=== PATIENT | male | born 1965 | race Caucasian/White ===

== ENCOUNTER → 2016-11-12 | Outpatient (CLI) | payer BC ==
[~2016-11-12] MED LIST: ALLO300T2 PO; HYDR25TA4 PO; LISI40TA PO; MULT-506 PO; SIMV40TA4 PO; [UNRECOGNIZED DRUG - CODE] PO
[2016-11-12 12:22] LABS: BASO % 0.3 %; BASO ABS # 0.02 K/uL (0-0.2); COMPLETE YES; EOS % 3.4 %; HEMATOCRIT 42.1 % (42-52); IG% 0.1 %; LYMPH % 23.7 %; LYMPH ABS # 1.76 K/uL (1.2-3.4); MEAN CELL VOLUME 89.6 fL (80-100); MEAN CORPUSCULAR HEMOGLOBIN 29.1 pg (25-34); MEAN CORPUSCULAR HGB CONC 32.5 g/dl (32-36); MONO % 6.5 %; PLATELET COUNT 180 K/uL (130-400); WHITE BLOOD COUNT 7.42 K/uL (4.8-10.8)
[2016-11-12 12:40] LABS: ALB/GLOB RATIO 0.9 (0.9-2); ALT/SGPT 34 U/L (12-78); AST/SGOT 20 U/L (15-37); BLOOD UREA NITROGEN 13 mg/dl (7-18); BUN/CREATININE RATIO 13.9 (10-20); CALCIUM 8.9 mg/dl (8.5-10.1); CARBON DIOXIDE 28 mmol/L (21-32); CHLORIDE 109 mmol/L (98-107); CREATININE 0.96 mg/dl (0.60-1.40); GLUCOSE 88 mg/dl (70-99); HDL CHOLESTEROL 31 mg/dl; POTASSIUM 3.6 mmol/L (3.5-5.1); SODIUM 143 mmol/L (136-145); TRIGLYCERIDES 232 mg/dl (0-150); VERY LOW DENSITY LIPOPROT CALC 46 mg/dl
[2016-11-12 12:48] LABS: ALKALINE PHOSPHATASE 65 U/L (45-117); CHOLESTEROL 122 mg/dl (0-200); CHOLESTEROL/HDL RATIO 3.9; LDL CHOLESTEROL CALCULATED 45 mg/dl; PROSTATE SPECIFIC ANTIGEN 0.862 ng/ml (0.000-4.000); URIC ACID 6.7 mg/dl (2.6-7.2)
[2016-11-12 13:32] LABS: LYME DISEASE AB IGG NEG (NEG); LYME DISEASE AB IGM NEG (NEG)
[2016-11-13 18:20] LABS: ALBUMIN 3.6 G/DL (3.8-4.8); GAMMA GLOBULIN 0.9 G/DL (0.8-1.7); TOTAL PROTEIN 6.6 G/DL (6.2-8.3)
== END | disposition home or self-care (01) ==
LOC: C.LABBFT 10:41
PROVIDERS: ATTEND Internal Medicine
DX: R80.9 Proteinuria, unspecified (principal); E78.00 Pure hypercholesterolemia, unspecified; M25.50 Pain in unspecified joint; M10.9 Gout, unspecified

== ENCOUNTER → 2016-11-13 | Outpatient (CLI) | payer BC ==
[2016-11-13 17:31] LABS: URINE APPEARANCE CLEAR (CLEAR); URINE BILIRUBIN NEG (NEG); URINE COLOR YELLOW; URINE NITRITE NEG (NEG); URINE PH 5.5 (4.5-7.5); URINE SPECIFIC GRAVITY 1.025 (1.000-1.030); UROBILINOGEN NEG (NEG); ZZUR CULT IF INDIC CLEAN CATCH NO
[2016-11-13 17:42] LABS: MANUAL MICROSCOPIC REQUIRED? NO; REVIEW REQ? YES
[2016-11-18 09:01] LABS: ALBUMIN % 70.54 %; ALPHA-2-GLOBULIN % 5.16 %; BETA GLOBULIN % 11.78 %; CREATININE UR 177 MG/DL (20-370); GAMMA GLOBULIN % 7.08 %
== END | disposition home or self-care (01) ==
LOC: C.LABBFT 10:17
PROVIDERS: ATTEND Internal Medicine
DX: R80.9 Proteinuria, unspecified (principal)

== ENCOUNTER 2017-01-20 15:31 | Emergency (ER) | payer BC ==
[~2017-01-20] VITALS: Ht 162.6 cm; Wt 141.0 kg
[2017-01-20 15:33] VITALS: TEMP 36.7; Ht 162.6 cm; Wt 141.0 kg
--- NOTE | 2017-01-20 16:09 | DIAGNOSTIC IMAGING REPORT ---
L ANKLE MIN 3 VIEWS ROUTINE CLINICAL HISTORY: Left ankle pain. COMPARISON: None FINDINGS: Moderate ankle soft tissue swelling is noted. A lucency through the posterior aspect of the distal left tibia suggests a minimally displaced fracture. Note is made of cortical irregularity distal left tibia along the distal tibiofibular syndesmosis. This is age indeterminate. Talar dome is intact. There is no ankle mortise widening. IMPRESSION: 1. Minimally displaced fracture of the posterior aspect of the distal left tibia which is likely acute. This could be correlated with traumatic history. 2. Lucency with cortical irregularity of the distal left tibia along the distal tibiofibular syndesmosis which is age indeterminate but may reflect an acute fracture. 3. Moderate ankle soft tissue swelling. No ankle mortise widening. Electronically signed by: Perry Enriquez M.D. 01/20/2017 4:08 PM Dictated Date/Time: 01/20/2017 4:04 PM
--- NOTE | 2017-01-20 16:46 | EMERGENCY ROOM VISIT NOTE ---
ED Visit Note First contact with patient: 16:11 CHIEF COMPLAINT: Ankle pain HISTORY OF PRESENT ILLNESS: This 51-year-old male patient presents to the emergency department, 2 hours after sustaining an injury to the left ankle and foot with a plantar flexion motion when he fell down the stairs. The patient states he was walking down the cellar steps, when he fell down approximately 3- 4 steps. He states he landed on his knees with his feet plantar flexed underneath him. The patient states since the injury, he has not been able to ambulate. The patient complains of pain along the front and medial aspects of the ankle. The patient denies pain of the foot. The patient rates the pain as minimal and 5/10. The patient is not able to bear weight on the foot. Constant pain, worse with movement, weight bearing, and the dependent position. The patient does complain of bilateral knee pain from bruising and contusions when he fell and he is able to move their toes. No numbness or weakness of the foot, no laceration. The patient has not had a previous fracture to this ankle. The patient has taken 600 mg ibuprofen for the pain, which she did state helped significantly. The patient does complain of discomfort in his left third and fourth fingers. He states he believes he jammed them back when he fell. The patient does decline x-rays of the fingers. The patient denies any other injury. REVIEW OF SYSTEMS: A 6 system review of systems was completed with positives and pertinent negatives listed in the HPI. ALLERGIES: None MEDICATIONS: Please see list. I did personally review the patient's medications with him at bedside. PMH: Hypertension, hyperlipidemia SOCIAL HISTORY: Patient lives locally with family. He admits to chewing tobacco. He denies drug, alcohol, or other tobacco use. PHYSICAL EXAM: Vital Signs: Reviewed Nurse's notes, vital signs stable. GENERAL : This is a 51-year-old male presented in a wheelchair, no acute distress, but appears in pain, well-developed, well-nourished. MENTAL STATUS: Alert, oriented to person place and time, and cooperative. MUSCULOSKELETAL: The left ankle is swollen and tender over the lateral malleolus, anterior aspect of the ankle, and posterior aspect of the ankle, but the skin is intact and there is no ligamentous instability. There is no fifth metatarsal tenderness. There is no tenderness over the rest of the foot. There is no calf or tibia/fibular tenderness. There is no visual deformity. The foot and toes are warm and well- perfused. Dorsalis pedis pulse 2+. Sensation to pain and light touch is intact. Capillary refill less than 2 seconds. RADIOLOGY: X-Ray Left Ankle: L ANKLE MIN 3 VIEWS ROUTINE CLINICAL HISTORY: Left ankle pain. COMPARISON: None FINDINGS: Moderate ankle soft tissue swelling is noted. A lucency through the posterior aspect of the distal left tibia suggests a minimally displaced fracture. Note is made of cortical irregularity distal left tibia along the distal tibiofibular syndesmosis. This is age indeterminate. Talar dome is intact. There is no ankle mortise widening. IMPRESSION: 1. Minimally displaced fracture of the posterior aspect of the distal left tibia which is likely acute. This could be correlated with traumatic history. 2. Lucency with cortical irregularity of the distal left tibia along the distal tibiofibular syndesmosis which is age indeterminate but may reflect an acute fracture. 3. Moderate ankle soft tissue swelling. No ankle mortise widening. Electronically signed by: Perry Enriquez M.D. 01/20/2017 4:08 PM Dictated Date/Time: 01/20/2017 4:04 PM EMERGENCY DEPARTMENT COURSE: I examined the patient. I did offer pain medication, but he declines. X-rays of the left ankle, which were ordered through critical pathways were reviewed by myself and read by radiology and reveal a distal tibia fracture. A posterior leg Ortho-Glass splint was applied to the ankle under my direction and the position was satisfactory. Neurovascular status was rechecked and intact. The patient was instructed on the use of crutches. The patient was discharged home in good condition. I attest that I have personally reviewed the patient's current medication list. Blood Pressure Screening: Patient was found to have a slightly elevated blood pressure due to circumstances. I do not believe that the patient requires hypertension monitoring. DIFFERENTIAL DIAGNOSIS: Fracture, contusion, sprain, strain, and others DIAGNOSIS: Distal Tibia fracture DISCHARGE INSTRUCTIONS: ORTHOPEDIC INSTRUCTIONS: You were seen in the ED today for a posterior, slightly displaced, distal tibia fracture. Ibuprofen(Motrin, Advil) may be used for fever or pain. Use 600mg every six hours as needed. Take with food. Avoid using more than 2400mg in a 24 hour period. Do not use 2400mg per day for more than three consecutive days without physician direction. Prolonged inappropriate use can lead to stomach upset or ulcers. (AND/OR) Acetaminophen(Tylenol) may be used for fever or pain. Use 1000mg every six hours as needed. Avoid using more than 3000mg in a 24 hour period. Ice compresses for 20 minutes at a time four times daily for 2-3 days. Use the crutches as instructed. Rest and elevate your injury. Do not get the splint wet. If your splint feels excessively tight, you have worsening pain, develop numbness or tingling, or your digits appear blue, loosen the jeffery wrap. Then reapply the jeffery wrap gently without removing the splint. If your symptoms are not quickly relieved return to the ER for re- evaluation. Return to the ER immediately for any numbness, tingling, severe pain, extreme swelling in the extremity or as needed. Call [facility], [phone], today or tomorrow to arrange follow up for your injury, likely within 3-5 days. Follow-up with your primary care physician in 2 to 3 days for a recheck of your current condition. Current/Historical Medications Scheduled Allopurinol (Zyloprim), 300 MG PO DAILY Diltiazem Hcl Extended Release (Tiazac 180 Mg), 180 MG PO DAILY Hydrochlorothiazide (Hctz), 25 MG PO DAILY Lisinopril (Zestril), 40 MG PO DAILY Multivitamin (Multivitamin), 1 TAB PO DAILY Simvastatin (Zocor), 40 MG PO QPM Allergies Coded Allergies: No Known Allergies (Verified , 01/20/17) Vital Signs Date Time Temp Pulse Resp B/P (MAP) Pulse Ox O2 Delivery O2 Flow Rate FiO2 01/20/17 17:18 84 16 186/107 98 01/20/17 15:33 36.7 97 20 160/88 96 Room Air Departure Information Impression Primary Impression: Fracture of distal end of left tibia Dispostion Home / Self-Care Condition GOOD Referrals Malik Li M.D. (PCP) Tejinder Matta, DO Patient Instructions ED Fx Ankle General, [facility] Additional Instructions ORTHOPEDIC INSTRUCTIONS: You were seen in the ED today for a posterior, slightly displaced, distal tibia fracture. Ibuprofen(Motrin, Advil) may be used for fever or pain. Use 600mg every six hours as needed. Take with food. Avoid using more than 2400mg in a 24 hour period. Do not use 2400mg per day for more than three consecutive days without physician direction. Prolonged inappropriate use can lead to stomach upset or ulcers. (AND/OR) Acetaminophen(Tylenol) may be used for fever or pain. Use 1000mg every six hours as needed. Avoid using more than 3000mg in a 24 hour period. Ice compresses for 20 minutes at a time four times daily for 2-3 days. Use the crutches as instructed. Rest and elevate your injury. Do not get the splint wet. If your splint feels excessively tight, you have worsening pain, develop numbness or tingling, or your digits appear blue, loosen the jeffery wrap. Then reapply the jeffery wrap gently without removing the splint. If your symptoms are not quickly relieved return to the ER for re- evaluation. Return to the ER immediately for any numbness, tingling, severe pain, extreme swelling in the extremity or as needed. Call [facility], [phone], today or tomorrow to arrange follow up for your injury, likely within 3-5 days. Follow-up with your primary care physician in 2 to 3 days for a recheck of your current condition. Work Instructions Return To Work: 3 days Problem Qualifiers Primary Impression: Fracture of distal end of left tibia Encounter type: initial encounter Fracture type: closed Fracture morphology : unspecified fracture morphology Qualified Codes: S82.302A - Unspecified fracture of lower end of left tibia, initial encounter for closed fracture
[2017-01-20 17:18] VITALS: BP 186/107; PULSE 84; O2SAT 98
== END 2017-01-20 17:18 | disposition home or self-care (01) ==
LOC: C.EDB 15:32 → C.EDD 17:18
DX: S82.302A Unspecified fracture of lower end of left tibia, initial encounter for closed fracture (principal); W10.9XXA Fall (on) (from) unspecified stairs and steps, initial encounter; Y92.009 Unspecified place in unspecified non-institutional (private) residence as the place of occurrence of the external cause; M25.561 Pain in right knee; M25.562 Pain in left knee; M79.645 Pain in left finger(s); I10 Essential (primary) hypertension; E78.5 Hyperlipidemia, unspecified; F17.220 Nicotine dependence, chewing tobacco, uncomplicated

== ENCOUNTER → 2017-01-21 | Outpatient (CLI) | payer BC | END | disposition home or self-care (01) | LOC: C.RDSM 12:11 | PROVIDERS: ATTEND Orthopaedic Surgery | DX: S89.82XA Other specified injuries of left lower leg, initial encounter (principal); X58.XXXA Exposure to other specified factors, initial encounter ==

== ENCOUNTER → 2017-01-23 | Outpatient (CLI) | payer BC ==
--- NOTE | 2017-01-23 14:39 | DIAGNOSTIC IMAGING REPORT ---
L VENOUS DOPP LOWER EXT UNILAT CLINICAL HISTORY: 51 years-old Male presenting with LT LEG SWELLING,R/O DVT STAT. TECHNIQUE: Real-time grayscale and color and spectral Doppler ultrasound imaging of the veins of the left lower extremity was performed. Compression and augmentation were also utilized. COMPARISON: None. FINDINGS: Left: Common femoral vein: Patent. Femoral vein: Patent. Greater saphenous vein: Patent. Popliteal vein: Patent. Calf veins: Patent. Other: None. IMPRESSION: No evidence of deep venous thrombosis. Electronically signed by: Marcos Chapin M.D. 01/23/2017 2:37 PM Dictated Date/Time: 01/23/2017 2:36 PM
== END | disposition home or self-care (01) ==
LOC: C.ULTR 13:58
PROVIDERS: ATTEND Orthopaedic Surgery
DX: R60.0 Localized edema (principal)

== ENCOUNTER → 2017-02-04 | Outpatient (CLI) | payer BC ==
[~2017-02-04] VITALS: Ht 167.6 cm; Wt 142.4 kg
[2017-02-04 14:27] VITALS: BP 148/100; PULSE 105; Ht 167.6 cm; Wt 142.4 kg
== END | disposition home or self-care (01) ==
LOC: C.NEUR 13:50
PROVIDERS: ATTEND Internal Medicine Pulmonary Disease
DX: G47.33 Obstructive sleep apnea (adult) (pediatric) (principal); E66.01 Morbid (severe) obesity due to excess calories

== ENCOUNTER → 2017-03-07 | Outpatient (CLI) | payer BC | END | disposition home or self-care (01) | LOC: C.RDSM 10:28 | PROVIDERS: ATTEND Orthopaedic Surgery | DX: M25.572 Pain in left ankle and joints of left foot (principal) ==

== ENCOUNTER → 2017-04-18 | Outpatient (CLI) | payer BC ==
[~2017-04-18] MED LIST changes: +DILT-113 PO
== END | disposition home or self-care (01) ==
LOC: C.LABBFT 10:20
PROVIDERS: ATTEND Internal Medicine
DX: R80.9 Proteinuria, unspecified (principal)

== ENCOUNTER → 2017-06-09 | Outpatient (CLI) | payer BC ==
[~2017-06-09] MED LIST changes: -DILT-113 PO
--- NOTE | 2017-06-09 10:40 | DIAGNOSTIC IMAGING REPORT ---
ULTRASOUND KIDNEYS AND BLADDER CLINICAL HISTORY: Chronic kidney disease. COMPARISON STUDY: Abdominal radiographs dated 08/14/2011. TECHNIQUE: Real-time, grayscale, and color flow sonography of the kidneys and bladder is performed. Images are reviewed in the transverse and longitudinal planes. FINDINGS: Kidneys: The kidneys are normal in size and echotexture. The right kidney measures 12.2 x 5.5 x 5.3 cm and the left kidney measures 12.9 x 6.2 x 6.1 cm. There is no hydronephrosis. No shadowing renal calculi are identified. There is no sonographic evidence of contour deforming renal mass lesion. No perinephric fluid is identified. Bladder: The bladder is normal in appearance. Bilateral ureteral jets were seen. Minimal intraluminal debris is noted. IMPRESSION: 1. The kidneys are normal in size and without hydronephrosis. 2. There is minimal intraluminal debris suggested in the bladder. Correlation with urinalysis will be required. Electronically signed by: Juan Antonio Torres M.D. 06/09/2017 10:39 AM Dictated Date/Time: 06/09/2017 10:37 AM
== END | disposition home or self-care (01) ==
LOC: C.ULTR 10:12
PROVIDERS: ATTEND Internal Medicine Nephrology
DX: I12.9 Hypertensive chronic kidney disease with stage 1 through stage 4 chronic kidney disease, or unspecified chronic kidney disease (principal); N18.1 Chronic kidney disease, stage 1; E66.9 Obesity, unspecified; G47.33 Obstructive sleep apnea (adult) (pediatric); R80.9 Proteinuria, unspecified; R93.41 Abnormal radiologic findings on diagnostic imaging of renal pelvis, ureter, or bladder

== ENCOUNTER → 2017-06-23 | Outpatient (CLI) | payer BC ==
[~2017-06-23] MED LIST changes: +DILT-113 PO
[2017-06-23 12:41] LABS: HEMATOCRIT 44.7 % (42-52); HEMOGLOBIN 14.7 g/dL (14.0-18.0); MEAN CELL VOLUME 89.9 fL (80-100); MEAN CORPUSCULAR HEMOGLOBIN 29.6 pg (25-34); MEAN CORPUSCULAR HGB CONC 32.9 g/dl (32-36); MEAN PLATELET VOLUME 10.9 fL (7.4-10.4); PLATELET COUNT 180 K/uL (130-400); RED CELL DISTRIBUTION WIDTH SD 48.6 fL (36.4-46.3); WHITE BLOOD COUNT 8.56 K/uL (4.8-10.8)
[2017-06-23 14:39] LABS: ALBUMIN 3.4 gm/dl (3.4-5.0); ALT/SGPT 29 U/L (12-78); BLOOD UREA NITROGEN 16 mg/dl (7-18); CALCIUM 9.4 mg/dl (8.5-10.1); CARBON DIOXIDE 30 mmol/L (21-32); CREATININE 1.14 mg/dl (0.60-1.40); GLUCOSE 99 mg/dl (70-99); POTASSIUM 3.9 mmol/L (3.5-5.1); SODIUM 140 mmol/L (136-145)
[2017-06-23 14:42] LABS: ALKALINE PHOSPHATASE 62 U/L (45-117); AST/SGOT 17 U/L (15-37); TOTAL PROTEIN 7.5 gm/dl (6.4-8.2)
== END | disposition home or self-care (01) ==
LOC: C.LABBFT 10:32
PROVIDERS: ATTEND Internal Medicine Nephrology
DX: I10 Essential (primary) hypertension (principal); R80.9 Proteinuria, unspecified; G47.33 Obstructive sleep apnea (adult) (pediatric); E66.9 Obesity, unspecified; N18.1 Chronic kidney disease, stage 1

== ENCOUNTER → 2017-07-10 | Day surgery (SDC) | payer BC ==
[2017-06-26 09:50] VITALS: Ht 162.6 cm; Wt 143.2 kg
[~2017-07-10] VITALS: Ht 162.6 cm; Wt 143.2 kg
[~2017-07-10] MED LIST changes: +KETAMINE HCL INJ 50 MG/ML 10 ML VIAL ONE; +LIDOCAINE HCL 2% 2 ML VIAL (20MG/ML) ONE; +MIDAZOLAM HCL 1 MG/ML 2ML VIAL ONE; +ONDANSETRON INJ 2 MG/ML 2 ML VIAL ONE; +PROPOFOL IV EMULSION 10 MG/ML 20 ML VIAL IV ONE; +SODIUM CHLORIDE 0.9% 500ML 500 ML IV ONE; -[UNRECOGNIZED DRUG - CODE] PO
--- NOTE | 2017-07-10 13:07 | Endo History and Physical ---
History & Physical Date of Service: Jul 10, 2017. Chief Complaint: HISTORY OF POLYPS Referring Physician: DR GILLILAND History of Present Illness 51 yo CM who presents for colonoscopy secondary to history of colon polyps. Past Surgical History Hx Cardiac Surgery: No Hx Internal Defibrillator: No Hx Pacemaker: No Hx Abdominal Surgery: No Hx of Implantable Prosthesis: No Hx Post-Op Nausea and Vomiting: No Hx Cancer Surgery: No Hx Thoracic Surgery: No Hx Orthopedic: No Hx Urinary Tract Surgery: No Family History Colon CA, Polyp Social History Smoking Status: Never Smoker Hx Substance Use: No Hx Alcohol Use: No Allergies Coded Allergies: No Known Allergies (Verified , 07/10/17) Current Medications Reported Home Medications Medications Dose Route/Sig Max Daily Dose Days Date Category Tiazac (Diltiazem HCl) 180 Mg Capcr 180 Mg PO QAM 06/26/17 Reported Multivitamin (Multivitamins) Tab 1 Tab PO QAM 07/11/14 Reported Zestril (Lisinopril) 40 Mg Tab 40 Mg PO QAM 03/02/12 Reported Zocor (Simvastatin) 40 Mg Tab 40 Mg PO QPM 03/02/12 Reported Zyloprim (Allopurinol) 300 Mg Tab 300 Mg PO QAM 03/02/12 Reported Hctz (Hydrochlorothiazide) 25 Mg Tab 25 Mg PO QAM 03/02/12 Reported Vital Signs Weight (Kilograms): 143.18 Height (Feet): 5 Height (Inches): 4 Date Time Temp Pulse Resp B/P (MAP) Pulse Ox O2 Delivery O2 Flow Rate FiO2 07/10/17 12:43 36.6 18 200/94 (129) 94 Room Air Physical Exam General Appearance: WD/WN, no apparent distress Respiratory/Chest: Auscultation: breath sounds normal Cardiovascular: Heart Auscultation: RRR Abdomen: Bowel Sounds: normal Inspection & Palpation: soft, non-distended, no tenderness, guarding & rebound Assessment and Plan Assessment: 51 yo CM who presents for colonoscopy secondary to history of colon polyps. Plan: Proceed with colonoscopy.
--- NOTE | 2017-07-10 14:12 | Discharge Instructions ---
Endoscopy Patient Instructions Date / Procedure(s) Performed Jul 10, 2017. Colonoscopy Allergy Information Coded Allergies: No Known Allergies (Verified , 07/10/17) Discharge Date / Findings Jul 10, 2017. Diverticulosis Medication Instructions OK to resume all medications today as prescribed Reported Home Medications Medications Dose Route/Sig Max Daily Dose Days Date Category Tiazac (Diltiazem HCl) 180 Mg Capcr 180 Mg PO QAM 06/26/17 Reported Multivitamin (Multivitamins) Tab 1 Tab PO QAM 07/11/14 Reported Zestril (Lisinopril) 40 Mg Tab 40 Mg PO QAM 03/02/12 Reported Zocor (Simvastatin) 40 Mg Tab 40 Mg PO QPM 03/02/12 Reported Zyloprim (Allopurinol) 300 Mg Tab 300 Mg PO QAM 03/02/12 Reported Hctz (Hydrochlorothiazide) 25 Mg Tab 25 Mg PO QAM 03/02/12 Reported Provider Instructions Activity Restrictions - No exercising or heavy lifting for 24 hours. - Do not drink alcohol the day of the procedure. - Do not drive a car or operate machinery until the day after the procedure. - Do not make any important decisions or sign important papers in 24 hours after the procedure. Following Day: - Return to full activity which may include returning to work/school. Diet Start your diet with liquids and light foods (jello, soup, juice, toast). Then eat your usual diet if not nauseated. Treatment For Common After Affects For mild abdominal pain, bloating, or excessive gas: - Rest - Eat lightly - Lie on right side Follow-Up Information Follow-up with DR GILLILAND as scheduled Anesthesia Information What You Should Know You have had a procedure that required some medicine to reduce anxiety and discomfort. This treatment is called moderate sedation. After receiving the treatment, you may be sleepy, but you will be able to breathe on your own. The effects of the treatment may last for several hours. Follow these instructions along with Activity/Diet recommendations noted above: * Do NOT do anything where dizziness or clumsiness would be dangerous. * Rest quietly at home today, then you can be up and about tomorrow. * Have a responsible person stay with you the rest of today. * You may have had an I.V. today. If so, you may take the dressing off later today. Recommendations Call your doctor if: * Trouble breathing * Continuous vomiting for more than 24 hours * Temperature above 101 degrees * Severe abdominal pain or bloating * Pain not relieved by pain medicine ordered * There is increased drainage or redness from any incision * A large amount of rectal bleeding greater than 2-3 tablespoons. (If you had a polyp/s removed or have hemorrhoids, a small amount of blood - from the rectum is to be expected.) * You have any unanswered questions or concerns. IN THE EVENT OF A SERIOUS EMERGENCY, GO TO THE NEAREST EMERGENCY ROOM Your discharge instructions were prepared by provider Rafal Emanuel. Patient Instructions Signature Page Lorenzo Mccoy Patient (or Guardian) Signature/Date: I have read and understand the instructions given to me by my caregivers. Caregiver/RN/Doctor Signature/Date: The above-named patient and/or guardian has received patient instructions on this date. + Original Patient Signature Page (only) stays with chart. Please make copy for patient.
--- NOTE | 2017-07-10 14:26 | GI REPORT ---
Procedure Date: 07/10/2017 1:27 PM Procedure: Colonoscopy Indications: Screening for colorectal malignant neoplasm Medicines: Monitored Anesthesia Care Complications: No immediate complications. Estimated Blood Loss: Estimated blood loss: none. Procedure: Pre-Anesthesia Assessment: - Prior to the procedure, a History and Physical was performed, and patient medications and allergies were reviewed. The patient's tolerance of previous anesthesia was also reviewed. The risks and benefits of the procedure and the sedation options and risks were discussed with the patient. All questions were answered, and informed consent was obtained. Prior Anticoagulants: The patient has taken aspirin, last dose was 1 day prior to procedure. ASA Grade Assessment: III - A patient with severe systemic disease. After reviewing the risks and benefits, the patient was deemed in satisfactory condition to undergo the procedure. After I obtained informed consent, the scope was passed under direct vision. Throughout the procedure, the patient's blood pressure, pulse, and oxygen saturations were monitored continuously. The On-site loaner was introduced through the anus and advanced to the cecum, identified by appendiceal orifice and ileocecal valve. The colonoscopy was technically difficult and complex due to a redundant colon, significant looping and the patient's body habitus. Successful completion of the procedure was aided by changing the patient to a supine position and using manual pressure. The patient tolerated the procedure fairly well. The quality of the bowel preparation was good. The ileocecal valve, appendiceal orifice, and rectum were photographed. Findings: The perianal and digital rectal examinations were normal. Multiple small-mouthed diverticula were found in the sigmoid colon. The exam was otherwise without abnormality. Impression: - Diverticulosis in the sigmoid colon. - The examination was otherwise normal. - No specimens collected. Recommendation: - Resume previous diet. - Continue present medications. - Repeat colonoscopy in 10 years for surveillance. - Return to primary care physician as previously scheduled. Rafal Emanuel DO 07/10/2017 2:26:14 PM This report has been signed electronically. Note Initiated On: 07/10/2017 1:27 PM I attest to the content of the Intraoperative Record and orders documented therein, exceptions below
[2017-07-10 14:45] VITALS: BP 134/2; PULSE 84; O2SAT 94
--- NOTE | 2017-07-10 14:53 | Anesthesiology Progress Note ---
Anesthesia Post Op Note Date & Time Jul 10, 2017 at 14:52 Vital Signs Pain Intensity: 4 Vital Signs Past 12 Hours Date Time Temp Pulse Resp B/P (MAP) Pulse Ox O2 Delivery O2 Flow Rate FiO2 07/10/17 14:45 84 18 134/2 (46) 94 Room Air 5 07/10/17 14:30 85 18 146/92 (110) 99 Mask 5 07/10/17 14:15 86 16 134/96 (109) 97 Mask 5 07/10/17 12:43 36.6 18 200/94 (129) 94 Room Air Notes Mental Status: alert / awake / arousable, participated in evaluation Pt Amnestic to Procedure: Yes Nausea / Vomiting: adequately controlled Pain: adequately controlled Airway Patency, RR, SpO2: stable & adequate BP & HR: stable & adequate Hydration State: stable & adequate Anesthetic Complications: no major complications apparent Last BP was 134/82. Patient feels well with no complaints.
== END | disposition home or self-care (01) ==
LOC: C.GI 12:22
PROVIDERS: ATTEND Internal Medicine
DX: Z12.11 Encounter for screening for malignant neoplasm of colon (principal); K57.30 Diverticulosis of large intestine without perforation or abscess without bleeding; Z86.010 Personal history of colon polyps; Z80.0 Family history of malignant neoplasm of digestive organs; Z83.71 Family history of colonic polyps; G47.33 Obstructive sleep apnea (adult) (pediatric); K21.9 Gastro-esophageal reflux disease without esophagitis; M19.90 Unspecified osteoarthritis, unspecified site; E66.01 Morbid (severe) obesity due to excess calories; M10.9 Gout, unspecified

== ENCOUNTER → 2017-09-03 | Outpatient (CLI) | payer BC ==
[~2017-09-03] MED LIST changes: -KETAMINE HCL INJ 50 MG/ML 10 ML VIAL ONE; -LIDOCAINE HCL 2% 2 ML VIAL (20MG/ML) ONE; -MIDAZOLAM HCL 1 MG/ML 2ML VIAL ONE; -ONDANSETRON INJ 2 MG/ML 2 ML VIAL ONE; -PROPOFOL IV EMULSION 10 MG/ML 20 ML VIAL IV ONE; -SODIUM CHLORIDE 0.9% 500ML 500 ML IV ONE
[2017-09-03 12:39] LABS: ALBUMIN 3.9 gm/dl (3.4-5.0); BLOOD UREA NITROGEN 22 mg/dl (7-18); CALCIUM 9.5 mg/dl (8.5-10.1); CARBON DIOXIDE 28 mmol/L (21-32); GLUCOSE 115 mg/dl (70-99); PHOSPHORUS 3.2 mg/dl (2.5-4.9); POTASSIUM 3.9 mmol/L (3.5-5.1); SODIUM 139 mmol/L (136-145)
[2017-09-03 12:57] LABS: HEMOGLOBIN A1C 6.2 % (4.5-5.6)
== END | disposition home or self-care (01) ==
LOC: C.LABBFT 10:12
PROVIDERS: ATTEND Internal Medicine Nephrology
DX: I10 Essential (primary) hypertension (principal); R80.9 Proteinuria, unspecified; E66.9 Obesity, unspecified; N18.1 Chronic kidney disease, stage 1; R73.9 Hyperglycemia, unspecified

== ENCOUNTER 2021-12-29 23:13 | Inpatient (IN) ==
[2021-12-29] MEDS ORDERED: SODIUM CHLORIDE 0.9% 1000ML 250 ML IV ONE (23:35)
[2021-12-29 23:52] LABS: Basophils # (auto) 0.05 K/uL (0-0.2); Basophils % (auto) 0.4 %; Eosinophils # (auto) 0.35 K/uL (0-0.50); Eosinophils % (auto) 2.8 %; Hematocrit (blood only) 37.6 % (40.1-51.0); Immature Granulocytes # (auto) 0.09 K/uL (0.00-0.02); Immature Granulocytes % (auto) 0.7 %; Lymphocytes % (auto) 22.4 %; Mean Corpuscular Hemoglobin 29.1 pg (25.0-34.0); Mean Corpuscular Hgb Conc 31.9 g/dL (32.0-36.0); Mean Corpuscular Volume 91.3 fL (80.0-100.0); Mean Platelet Volume 12.2 fL (9.4-12.4); Monocytes # (auto) 1.34 K/uL (0.24-0.82); Monocytes % (auto) 10.7 %; Neutrophils # (auto) 7.86 K/uL (1.4-6.5); Platelet Count 219 K/uL (130-400); RDW Coefficient of Variation 15.6 % (11.5-14.5); RDW Standard Deviation 51.8 fL (36.4-46.3); Red Blood Count 4.12 M/uL (4.63-6.08); White Blood Count 12.49 K/ul (4.8-10.8)
--- NOTE | 2021-12-30 | Emergency Department Note ---
History of Present Illness General Chief complaint: Cardiac Assessment Stated complaint: SOB, ANXIETY, TACHYCARDIA, LIGHTHEADED Time Seen by Provider: 12/29/21 23:25 History of Present Illness Maximum Pain Intensity: 8 56-year-old male presents emergency department with a 1 week history of intermittent chest pain and shortness of breath. He states last Friday today had substernal chest pressure that radiated to his back and for the 5 days now he has had intermittent shortness of breath and dizziness when he stands up. Patient states this evening that it actually worsened. Patient's had no prior history of the same. Patient denies hemoptysis denies cough cold congestion symptoms. Patient states that he did take 3 home COVID test that were negative. Patient has no other complaints at this time. At rest he states that he is not short of breath but when he stands or walks he is short of breath and dizzy. Home Medications Medication Instructions Recorded Confirmed Type multivitamin 1 tab PO QAM 02/11/19 07/12/21 History cholecalciferol (vitamin D3) 50 50 mcg PO BID 01/31/20 07/12/21 History mcg (2,000 unit) tablet cyanocobalamin (vitamin B-12) 500 500 mcg PO DAILY 07/03/20 07/12/21 History mcg tablet triamcinolone acetonide 0.1 % 1 applic topical BID #80 grams 03/12/21 07/12/21 Rx topical cream albuterol sulfate 90 mcg/actuation 2 puff inhalation Q6H PRN 06/26/21 07/12/21 Rx aerosol inhaler Shortness Of Breath #18 grams allopurinol 300 mg tablet 300 mg PO QAM #90 tabs 08/26/21 Rx celecoxib 100 mg capsule (Celebrex) 100 mg PO BID pain #60 caps 08/26/21 Rx diltiazem HCl 300 mg 300 mg PO QAM #90 caps 08/26/21 Rx capsule,extended release 24 hr glucosamine sulfate 2KCl 1,000 mg 1,000 mg PO BID #60 tabs 08/26/21 Rx tablet (Glucosamine Relief) hydrochlorothiazide 25 mg tablet 25 mg PO QAM #90 tabs 08/26/21 Rx irbesartan 300 mg tablet 300 mg PO QAM #90 tabs 08/26/21 Rx simvastatin 40 mg tablet 40 mg PO HS #90 tabs 08/26/21 Rx spironolactone 25 mg tablet 25 mg PO QAM #90 tabs 08/26/21 Rx metformin 500 mg tablet,extended 1,000 mg PO BID #360 tabs 09/03/21 Rx release 24 hr Allergies Allergy/AdvReac Type Severity Reaction Status Date / Time No Known Allergies Allergy Verified 07/12/21 14:12 Past Med/Surg History Medical History Asthma inhaler prn Chronic kidney disease follows with Dr. Estrada Diabetes mellitus, type 2 Diverticulosis Gout Hypertension Right bundle branch block Sleep apnea bipap Surgical History History of colonoscopy with polypectomy History of thyroid surgery benign cyst removed History of tonsillectomy and adenoidectomy Status post correction of deviated nasal septum Status post uvulopalatopharyngoplasty Family History Mother Family history of diabetes mellitus Father Family history of diabetes mellitus Other No family history of adverse response to anesthesia Denies family history of Crohn's disease Colorectal cancer Ulcerative colitis Social History Smoking Status: Never smoker Second Hand Exposure: Yes (work environment); Hx Alcohol Use: No Hx Substance Use: No Preferred Language: Polish Communication Ability: Effective Community Living Coach Required: No Beliefs That Will Affect Care: None Current Living Situation: Spouse and Family Current Living Situation Comment: Lives with and 3 kids Feels Safe at Home: Yes Assistive Devices: BiPap Review of Systems A total of 10 systems reviewed and were otherwise negative Constitutional: no fever Respiratory: no cough Cardiovascular: + chest pain and + dyspnea Gastrointestinal: no abdominal pain Physical Exam Vital Signs Vital Signs - 24 hr 12/29/21 23:17 12/29/21 23:51 12/29/21 23:25 Temperature 36.0 C L Temperature Source Temporal Artery Scan Pulse Rate 50 L 54 L Pulse Rate from SpO2 Sensor Respiratory Rate 22 15 Respiratory Effort / Characteristics Non-Labored Spontaneous Spontaneous Short of Breath Respiratory Depth Normal Respiratory Pattern Regular Blood Pressure 159/72 H Blood Pressure Mean 101 Blood Pressure Position Sitting Pulse Oximetry 97 97 Oxygen Delivery Method Room Air Room Air Sepsis Recent Fever Within 48 Hours No Sepsis New/Unexplained Change in Mental Status N/A Sepsis Action Taken by Nursing No Action Required 12/29/21 23:31 12/30/21 00:00 12/30/21 00:30 Temperature Temperature Source Pulse Rate 44 L 47 L 43 L Pulse Rate from SpO2 Sensor 43 L 44 L Respiratory Rate 16 13 19 Respiratory Effort / Characteristics Respiratory Depth Respiratory Pattern Blood Pressure 152/92 H 118/62 133/62 Blood Pressure Mean 112 80 85 Blood Pressure Position Pulse Oximetry 98 98 95 Oxygen Delivery Method Room Air Room Air Room Air Sepsis Recent Fever Within 48 Hours Sepsis New/Unexplained Change in Mental Status Sepsis Action Taken by Nursing 12/30/21 01:00 Temperature Temperature Source Pulse Rate 42 L Pulse Rate from SpO2 Sensor Respiratory Rate 21 Respiratory Effort / Characteristics Respiratory Depth Respiratory Pattern Blood Pressure 114/53 L Blood Pressure Mean 73 Blood Pressure Position Pulse Oximetry 97 Oxygen Delivery Method Room Air Sepsis Recent Fever Within 48 Hours Sepsis New/Unexplained Change in Mental Status Sepsis Action Taken by Nursing GENERAL: Patient is awake alert in no acute distress patient is resting comfortably and showing no signs of anxiety EYES: The conjunctivae are clear. The pupils are round and reactive. EARS, NOSE, MOUTH AND THROAT: The nose is without any evidence of any deformity. Mucous membranes are moist. Tongue is midline. NECK: The neck is nontender and supple RESPIRATORY: Normal respiratory effort is noted there is no evidence of wheezing rhonchi or rales CARDIOVASCULAR: Bradycardic rhythm noted there no murmurs rubs or gallops normal S1 normal S2. GASTROINTESTINAL: The abdomen is soft. Abdomen is nontender. PELVIS: The Pelvis is stable. No tenderness to palpation is noted. BACK: No midline tenderness or or step-off noted range of motion in flexion extension as well as rotation no signs of muscle spasm noted MUSCULOSKELETAL/EXTREMITIES: There is no evidence of gross deformity full range of motion is noted in the hips and shoulders. Calves are nontender SKIN: There is no obvious evidence of any rash. There are no petechiae, pallor o r cyanosis noted. NEUROLOGIC: Patient is awake alert and oriented x3 strength is symmetric; Course Reevaluation(s) Reevaluation #1: Was evaluated for low heart rate and found to be in a 2-1 AV block. Patient is normotensive. Patient will be admitted to the hospital for further evaluation due to chest pain shortness of breath. Time: 01:12 Consultations Consultation #1: This case was discussed with the [facility] hospitalist for admission Time: 01:12 Administered Medications Discontinued Medications Sodium Chloride (Nss 1000ml) 250 mls @ 999 mls/hr IV .Q16M ONE Stop: 12/29/21 23:50 Last Infusion: 12/30/21 00:42 Dose: 0 mls/hr Documented By: Admin: 12/30/21 00:08 Dose: 999 mls/hr Documented By: YENNIFER Critical Care Time Critical Care Time: Yes Total Critical Care Time: 35 I have personally spent greater than 35 minutes of critical care time in the direct management of this patient. This includes bedside care, interpretation of diagnostic studies, and testing, discussion with consultants, patient, and family members, and other required patient management activities. These minutes are in excess of all separately billable procedures. Medical Decision Making Medical Records Attestation: I reviewed the patient's medical records. Home Medications Current Medication List: was personally reviewed by me Laboratory Data Attestation: I reviewed the patient's lab results. Result diagrams: 12/29/21 23:26 12/29/21 23:26 Lab Results 12/29/21 12/29/21 12/29/21 Range/Units 23:26 23:26 23:26 WBC 12.49 H (4.8-10.8) K/ul RBC 4.12 L (4.63-6.08) M/uL Hgb 12.0 L (14.0-18.0) g/dl Hct 37.6 L (40.1-51.0) % MCV 91.3 (80.0-100.0) fL MCH 29.1 (25.0-34.0) pg MCHC 31.9 L (32.0-36.0) g/dL RDW Std Deviation 51.8 H (36.4-46.3) fL RDW Coeff of Juan A 15.6 H (11.5-14.5) % Plt Count 219 (130-400) K/uL MPV 12.2 (9.4-12.4) fL Immature Gran % (Auto) 0.7 % Neut % (Auto) 63.0 % Lymph % (Auto) 22.4 % [place] % (Auto) 10.7 % Eos % (Auto) 2.8 % Baso % (Auto) 0.4 % Neut # (Auto) 7.86 H (1.4-6.5) K/uL Lymph # (Auto) 2.80 (1.2-3.4) K/uL [place] # (Auto) 1.34 H (0.24-0.82) K/uL Eos # (Auto) 0.35 (0-0.50) K/uL Baso # (Auto) 0.05 (0-0.2) K/uL Immature Gran # (Auto) 0.09 H (0.00-0.02) K/uL PT 10.9 (9.0-12.0) Seconds INR 1.0 (0.9-1.1) D-Dimer 650 H* (0-500) ug/L FEU Sodium 139 (136-145) mmol/L Potassium 3.7 (3.5-5.1) mmol/L Chloride 107 (98-107) mmol/L Carbon Dioxide 21 (21-32) mmol/L Anion Gap 11 (3-11) BUN 36 H (6-23) mg/dl Creatinine 1.84 H (0.6-1.4) mg/dl Est Cr Clr Drug Dosing 58.5 ml/min Est GFR ( Amer) 46.1 ml/min Est GFR (Non-Af Amer) 39.8 ml/min BUN/Creatinine Ratio 19.6 (10-20) Glucose 111 H (70-99(Fasting)) mg/dl Calcium 9.6 (8.5-10.1) mg/dl Total Bilirubin 0.2 (0.2-1.0) mg/dl AST 14 (13-39) U/L ALT 26 (7-52) U/L Alkaline Phosphatase 54 (34-104) U/L Troponin I High Sens 24.2 H (0-20) pg/ml Total Protein 6.8 (6.0-8.3) gm/dl Albumin 3.9 (3.4-5.0) gm/dl Globulin 2.9 (2.5-4.0) gm/dl Albumin/Globulin Ratio 1.3 (0.9-2) SARS-CoV-2, RNA, NAAT (NEGATIVE) 12/29/21 Range/Units 23:45 WBC (4.8-10.8) K/ul RBC (4.63-6.08) M/uL Hgb (14.0-18.0) g/dl Hct (40.1-51.0) % MCV (80.0-100.0) fL MCH (25.0-34.0) pg MCHC (32.0-36.0) g/dL RDW Std Deviation (36.4-46.3) fL RDW Coeff of Juan A (11.5-14.5) % Plt Count (130-400) K/uL MPV (9.4-12.4) fL Immature Gran % (Auto) % Neut % (Auto) % Lymph % (Auto) % [place] % (Auto) % Eos % (Auto) % Baso % (Auto) % Neut # (Auto) (1.4-6.5) K/uL Lymph # (Auto) (1.2-3.4) K/uL [place] # (Auto) (0.24-0.82) K/uL Eos # (Auto) (0-0.50) K/uL Baso # (Auto) (0-0.2) K/uL Immature Gran # (Auto) (0.00-0.02) K/uL PT (9.0-12.0) Seconds INR (0.9-1.1) D-Dimer (0-500) ug/L FEU Sodium (136-145) mmol/L Potassium (3.5-5.1) mmol/L Chloride (98-107) mmol/L Carbon Dioxide (21-32) mmol/L Anion Gap (3-11) BUN (6-23) mg/dl Creatinine (0.6-1.4) mg/dl Est Cr Clr Drug Dosing ml/min Est GFR ( Amer) ml/min Est GFR (Non-Af Amer) ml/min BUN/Creatinine Ratio (10-20) Glucose (70-99(Fasting)) mg/dl Calcium (8.5-10.1) mg/dl Total Bilirubin (0.2-1.0) mg/dl AST (13-39) U/L ALT (7-52) U/L Alkaline Phosphatase (34-104) U/L Troponin I High Sens (0-20) pg/ml Total Protein (6.0-8.3) gm/dl Albumin (3.4-5.0) gm/dl Globulin (2.5-4.0) gm/dl Albumin/Globulin Ratio (0.9-2) SARS-CoV-2, RNA, NAAT NEGATIVE (NEGATIVE) Imaging Data Attestation: I personally reviewed and interpreted this imaging study as follows: ECG Data Attestation: I personally reviewed and interpreted this ECG as follows: Additional Comments: His EKG and rhythm strip interpreted by me appears to be a 2-1 AV block rate of 46 incomplete right bundle branch block occasional PVC occasional PACs your EKG is interpreted by me appear to be a 2 to 1 AV block and the rhythm strip as well correlates with a 2-1 AV block MDM Narrative Medical decision making differential diagnosis includes cardiac dysrhythmia complete heart block angina unstable angina acute coronary syndrome metabolic derangement dehydration electrolyte abnormality. Plan is to check labs check EKG check chest x-ray. Patient was found to be in a 2-1 AV block which may be causing his symptoms. Patient has a slightly elevated D-dimer, he has an elevated creatinine of 1.8. This point time I do not suspect pulmonary embolism however patient clearly has a cardiac dysrhythmia that needs further investigation. Case was discussed with the hospitalist for admission. Impression & Plan AV heart block, Chest pain, CKD (chronic kidney disease) Discharge Plan Visit Data Chief Complaint: Cardiac Assessment Stated Complaint: SOB, ANXIETY, TACHYCARDIA, LIGHTHEADED ED Provider: Sergey Moy Discharge Problem: AV heart block, Chest pain, CKD (chronic kidney disease) Patient Disposition: Being Evaluated by Hospitalist Forms Stand Alone Forms: My [facility] Prescriptions Prescriptions: No Action spironolactone 25 mg tablet 25 mg PO QAM Qty: 90 1RF celecoxib [Celebrex] 100 mg capsule 100 mg PO BID Qty: 60 5RF Rx Instructions: 1 capsule twice per day with food. allopurinol 300 mg tablet 300 mg PO QAM Qty: 90 1RF diltiazem HCl 300 mg capsule,extended release 24hr 300 mg PO QAM Qty: 90 1RF glucosamine sulfate 2KCl [Glucosamine Relief] 1,000 mg tablet 1,000 mg PO BID Qty: 60 3RF Rx Instructions: administer with meals hydrochlorothiazide 25 mg tablet 25 mg PO QAM Qty: 90 1RF simvastatin 40 mg tablet 40 mg PO HS Qty: 90 1RF irbesartan 300 mg tablet 300 mg PO QAM Qty: 90 1RF metformin 500 mg tablet extended release 24 hr 1,000 mg PO BID Qty: 360 3RF cholecalciferol (vitamin D3) 50 mcg (2,000 unit) tablet 50 mcg PO BID albuterol sulfate 90 mcg/actuation HFA aerosol inhaler 2 puff INH Q6H PRN (Reason: Shortness Of Breath) Qty: 18 1RF cyanocobalamin (vitamin B-12) 500 mcg tablet 500 mcg PO DAILY triamcinolone acetonide 0.1 % cream 1 applic topical BID Qty: 80 0RF Rx Instructions: Apply twice per day as needed to rash on legs. multivitamin Tablet 1 tab PO QAM Referrals Referrals: PCP,NO [Primary Care Provider] -
[2021-12-30 00:03] LABS: Prothrombin Time 10.9 Seconds (9.0-12.0)
[2021-12-30 00:18] LABS: Troponin I High Sensitivity 24.2 pg/ml (0-20)
[2021-12-30 00:26] LABS: D Dimer 650 ug/L FEU (0-500)
[2021-12-30 00:41] LABS: Albumin Globulin Ratio 1.3 (0.9-2); Albumin Level 3.9 gm/dl (3.4-5.0); BUN Creatinine Ratio 19.6 (10-20); Bilirubin,Total 0.2 mg/dl (0.2-1.0); Calcium 9.6 mg/dl (8.5-10.1); Creatinine Clr Calc Pharmacy 58.5 ml/min; Est GFR (African American) 46.1 ml/min; Est GFR (Non-African American) 39.8 ml/min; Globulin 2.9 gm/dl (2.5-4.0); Potassium 3.7 mmol/L (3.5-5.1); Total Protein 6.8 gm/dl (6.0-8.3)
[2021-12-30] MEDS ORDERED: HYDROCODONE/ACETAMOPHEN 5/325MG TAB PO STA (01:06)
[2021-12-30 02:00] LABS: Magnesium 1.6 mg/dl (1.7-2.4)
--- NOTE | 2021-12-30 02:17 | History & Physical Report ---
Date of Service December 30, 2021 Assessment & Plan (1) AV heart block: Plan: 56-year-old male with history of hypertension, hyperlipidemia, diabetes and CKD presenting with 1 week of substernal chest discomfort and exertional dyspnea. Found to be in acute heart block, heart rate of 47. Blood pressure stable. Patient is awake alert and answering questions appropriately. Admit to medical telemetry Maintain external pacer pads in place in the event of cardiac decompensation Check magnesium, phosphorus, TSH, cortisol and Lyme serology Trend troponin Check 2D echo We will hold diltiazem Cardiology consultation appreciated (2) Diabetes mellitus type II, controlled: Plan: Patient with type 2 diabetes, well controlled on metformin and semaglutide. Last hemoglobin A1c = 6.2 on 02/12/2021. Blood sugar today = 111 We will hold metformin and semaglutide Lantus 7 units twice daily with insulin sliding scale Goal blood sugar 1 10-1 40 (3) Severe obstructive sleep apnea: Plan: Chronic. Patient is compliant with his home BiPAP Continue nocturnal BiPAP 03/12, adjust as needed (4) Anemia: Plan: Patient with normochromic, normocytic anemia with Hgb = 12, HCT equals 37.6. This is slightly lower than most recent value on 02/12/2021 (Hgb = 12.8, HCT = 40.6). Patient reports that he has had some dark stools and was concerned for blood. Last colonoscopy 07/10/2017 which revealed multiple small mouth diverticuli of the sigmoid colon. Patient was recommended follow-up colonoscopy in 10 years. We will check Hemoccult Trend CBC (5) Hypertension: Plan: Blood pressure presently stable at 114/57. Patient demonstrates adequate blood pressure control upon review of previous chart values. We will hold spironolactone for now Hold irbesartan Hold hydrochlorothiazide Hold diltiazem Continue to monitor blood pressure (6) Dyslipidemia: Plan: Chronic. Stable. Continue simvastatin 40 mg p.o. nightly (7) CKD (chronic kidney disease): Plan: BUN and creatinine slightly above prior values, 36 and 1.84 respectively. Avoid nephrotoxic agents Renal dosing were needed Continue to monitor chemistry (8) Gout: Plan: Chronic. Stable. Continue allopurinol 300 mg p.o. every morning (9) Exercise-induced asthma: Plan: Chronic. Stable. Continue albuterol 2 puffs inhaled every 6 hours as needed History of Present Illness Chief Complaint: chest pain, SOB Primary Care Provider: NO PCP Lorenzo Mccoy is a pleasant 56yo male with history of hypertension, hyperlipidemia, diabetes, CKD, EMMA on nocturnal BiPAP presenting with shortness of breath and substernal chest discomfort that began acutely last week. Patient reports he was resting in bed when he became acutely short of breath. Since then he has had progressive dyspnea at rest as well as with minimal exertionbecoming short of breath with ambulating short distances in his home. He has substernal chest discomfort as well as dizziness. Patient denies fever, chills, cough, abdominal pain, nausea, vomiting, constipation. He has loose stools at baseline secondary to metformin use Denies known tick bites No known cardiac conditions. No prior AK, history of heart failure or arrhythmia. He denies symptoms of failure to include edema, orthopnea, weight gain. In the ER patient found to be in complete heart block. Blood pressure has remained stable, heart rate in the 40s. Patient is awake alert oriented and appropriate. Presently denies chest pain, shortness of breath. ER course: Jermyn 5/325 x 1 tablet, normal saline at 250 mL/h x 1 L Allergies Allergy/AdvReac Type Severity Reaction Status Date / Time No Known Allergies Allergy Verified 12/30/21 01:25 Home Medications Medication Instructions Recorded Confirmed Type multivitamin 1 tab PO QAM 02/11/19 12/30/21 History triamcinolone acetonide 0.1 % 1 applic topical BID #80 grams 03/12/21 12/30/21 Rx topical cream albuterol sulfate 90 mcg/actuation 2 puff inhalation Q6H PRN 06/26/21 12/30/21 Rx aerosol inhaler Shortness Of Breath #18 grams allopurinol 300 mg tablet 300 mg PO QAM #90 tabs 08/26/21 12/30/21 Rx celecoxib 100 mg capsule (Celebrex) 100 mg PO BID pain #60 caps 08/26/21 12/30/21 Rx diltiazem HCl 300 mg 300 mg PO QAM #90 caps 08/26/21 12/30/21 Rx capsule,extended release 24 hr hydrochlorothiazide 25 mg tablet 25 mg PO QAM #90 tabs 08/26/21 12/30/21 Rx irbesartan 300 mg tablet 300 mg PO QAM #90 tabs 08/26/21 12/30/21 Rx simvastatin 40 mg tablet 40 mg PO HS #90 tabs 08/26/21 12/30/21 Rx spironolactone 25 mg tablet 25 mg PO QAM #90 tabs 08/26/21 12/30/21 Rx metformin 500 mg tablet,extended 1,000 mg PO BID #360 tabs 09/03/21 12/30/21 Rx release 24 hr semaglutide (weight loss) 2.4 0 mg subcut WE 12/30/21 12/30/21 History mg/0.75 mL subcutaneous pen injector (Wegovraf) Past Med/Surg History Medical History Asthma inhaler prn Chronic kidney disease follows with Dr. Estrada Diabetes mellitus, type 2 Diverticulosis Dyslipidemia Gout Hypertension Right bundle branch block Sleep apnea bipap Surgical History History of colonoscopy with polypectomy History of thyroid surgery benign cyst removed History of tonsillectomy and adenoidectomy Status post correction of deviated nasal septum Status post uvulopalatopharyngoplasty Family History Mother Family history of diabetes mellitus Father Family history of diabetes mellitus Other No family history of adverse response to anesthesia Denies family history of Crohn's disease Colorectal cancer Ulcerative colitis Social History Smoking Status: Never smoker Second Hand Exposure: Yes (work environment); Hx Alcohol Use: No Hx Substance Use: No Preferred Language: Kyrgyz Communication Ability: Effective Fall Intern Required: No Beliefs That Will Affect Care: None Current Living Situation: Spouse and Family Current Living Situation Comment: Lives with and 3 kids Feels Safe at Home: Yes Assistive Devices: BiPap Review of Systems Review of Systems: All systems reviewed & are unremarkable except as noted in HPI & below Physical Exam Physical Exam: General: patient resting comfortably, NAD, non-toxic in appearance, AA&O x 4, anxious in appearance Skin: warm, dry, intact, no rashes or lesions HEENT: NC/AT, PERRL, EOMI, anicteric sclera, conjunctiva without injection, external ear normal to inspection and nontender, nares patent, moist mucus membranes, dentition intact, no oropharyngeal lesions, neck supple, trachea midline, no LAD, no thyromegaly, no JVD Heart: +S1/S2, regular, bradycardic, no m/r/g Lungs: equal air entry bilaterally, no rales/rhonchi/wheezes Abd: +BS, soft, NT/ND, no masses/organomegaly/ascites Ext: warm, 2+ pulses in UE/LE bilaterally, no clubbing/cyanosis or edema Neuro: nonfocal, patient AA&O x 4, speech intact, no facial droop, moving all extremities on command with equal strength 5/5 Results & Data Results & Data ([facility]) Vital Signs (Past 12 Hours) Vital Signs Temp Pulse Resp BP Pulse Ox O2 Del Method 12/30/21 01:31 47 L 20 114/57 L 95 Room Air 12/30/21 01:00 42 L 21 114/53 L 97 Room Air 12/30/21 00:30 43 L 19 133/62 95 Room Air 12/30/21 00:00 47 L 13 118/62 98 Room Air 12/29/21 23:31 44 L 16 152/92 H 98 Room Air 12/29/21 23:25 54 L 15 159/72 H 97 Room Air 12/29/21 23:17 36.0 C L 50 L 22 97 Room Air Laboratory Results Laboratory Results WBC 12.49 K/ul (4.8-10.8) H 12/29/21 23:26 RBC 4.12 M/uL (4.63-6.08) L 12/29/21 23:26 Hgb 12.0 g/dl (14.0-18.0) L 12/29/21 23:26 Hct 37.6 % (40.1-51.0) L 12/29/21 23:26 MCV 91.3 fL (80.0-100.0) 12/29/21 23:26 MCH 29.1 pg (25.0-34.0) 12/29/21 23:26 MCHC 31.9 g/dL (32.0-36.0) L 12/29/21 23:26 RDW Std Deviation 51.8 fL (36.4-46.3) H 12/29/21 23: RDW Coeff of Juan A 15.6 % (11.5-14.5) H 12/29/21 23: Plt Count 219 K/uL (130-400) 12/29/21 23: MPV 12.2 fL (9.4-12.4) 12/29/21 23: Immature Gran % (Auto) 0.7 % 12/29/21 23: Neut % (Auto) 63.0 % 12/29/21 23: Lymph % (Auto) 22.4 % 12/29/21 23: [place] % (Auto) 10.7 % 12/29/21 23: Eos % (Auto) 2.8 % 12/29/21: Baso % (Auto) 0.4 % 12/29/21: Neut # (Auto) 7.86 K/uL (1.4-6.5) H 12/29/21 23: Lymph # (Auto) 2.80 K/uL (1.2-3.4) 12/29/21 23: [place] # (Auto) 1.34 K/uL (0.24-0.82) H 12/29/21 23: Eos # (Auto) 0.35 K/uL (0-0.50) 12/29/21: Baso # (Auto) 0.05 K/uL (0-0.2) 12/29/21 23: Immature Gran # (Auto) 0.09 K/uL (0.00-0.02) H 12/29/21 23: PT 10.9 Seconds (9.0-12.0) 12/29/21 23: INR 1.0 (0.9-1.1) 12/29/21 23: D-Dimer 650 ug/L FEU (0-500) H* 12/29/21 23: Sodium 139 mmol/L (136-145) 12/29/21 23: Potassium 3.7 mmol/L (3.5-5.1) 12/29/21 23: Chloride 107 mmol/L (98-107) 12/29/21 23: Carbon Dioxide 21 mmol/L (21-32) 12/29/21 23:26 Anion Gap 11 (3-11) 12/29/21 23:26 BUN 36 mg/dl (6-23) H 12/29/21 23:26 Creatinine 1.84 mg/dl (0.6-1.4) H 12/29/21 23:26 Est Cr Clr Drug Dosing 58.5 ml/min 12/29/21 23:26 Est GFR ( Amer) 46.1 ml/min 12/29/21 23:26 Est GFR (Non-Af Amer) 39.8 ml/min 12/29/21 23:26 BUN/Creatinine Ratio 19.6 (10-20) 12/29/21 23:26 Glucose 111 mg/dl (70-99(Fasting)) H 12/29/21 23:26 Calcium 9.6 mg/dl (8.5-10.1) 12/29/21 23:26 Magnesium 1.6 mg/dl (1.7-2.4) L 12/29/21 23:26 Total Bilirubin 0.2 mg/dl (0.2-1.0) 12/29/21 23:26 AST 14 U/L (13-39) 12/29/21 23:26 ALT 26 U/L (7-52) 12/29/21 23:26 Alkaline Phosphatase 54 U/L (34-104) 12/29/21 23:26 Troponin I High Sens 24.2 pg/ml (0-20) H 12/29/21 23:26 Total Protein 6.8 gm/dl (6.0-8.3) 12/29/21 23:26 Albumin 3.9 gm/dl (3.4-5.0) 12/29/21 23:26 Globulin 2.9 gm/dl (2.5-4.0) 12/29/21 23:26 Albumin/Globulin Ratio 1.3 (0.9-2) 12/29/21 23:26 SARS-CoV-2, RNA, NAAT NEGATIVE (NEGATIVE) 12/29/21 23:45 ECG Additional Comments: Study reveals heart block with rate of 46, occasional PVC, incomplete right bundle branch block, QRS = 112 PG Care Time/CCT Total # of Minutes Spent Total Time Spent with Patient: Total time spent is greater than 50% in coordination of care (as documented) at patient's floor/unit and/or counseling patient: Coding Level of Care Code 93639 Initial Inpt Care Lvl 3 Diagnoses AV heart block I44.30 Diabetes mellitus type II, controlled E11.9 Severe obstructive sleep apnea G47.33 Anemia D64.9 Hypertension I10 Dyslipidemia E78.5 CKD (chronic kidney disease) N18.9 Gout M10.9 Exercise-induced asthma J45.990
[2021-12-30] MEDS ORDERED: GLUCOSE 40% GEL 15 GM TUBE PO PRN (03:05)
[2021-12-30] MEDS ORDERED: GLUCAGON FOR INJ 1 MG VIAL SQ PRN (03:05)
[2021-12-30] MEDS ORDERED: ONDANSETRON INJ 2 MG/ML 2 ML VIAL IV PRN (03:05)
[2021-12-30] MEDS ORDERED: GLUCOSE 10 TAB/TUBE PO PRN (03:05)
[2021-12-30] MEDS ORDERED: DEXTROSE 50% 50 ML SYRINGE IV PRN (03:05)
[2021-12-30] MEDS ORDERED: CARBOHYDRATES FOR HYPOGLYCEMIA PO PRN (03:05)
[2021-12-30] MEDS ORDERED: ALBUTEROL HFA 8 GM INHALER INH PRN (03:05)
[2021-12-30] MEDS ORDERED: ACETAMINOPHEN 325 MG TAB PO PRN (03:05)
[2021-12-30 05:06] LABS: Lyme Ab IgG w/WB Rflx Negative (Negative); Lyme Ab IgM w/WB Rflx Negative (Negative)
--- NOTE | 2021-12-30 08:16 | XRay Report ---
XR chest 1V portable CLINICAL HISTORY: Atypical chest pain. COMPARISON STUDY: Chest radiograph June 07, 2015. FINDINGS: Lung volumes are normal. Lungs are clear. There is no pneumothorax or pleural effusion. Car diac size is normal. Mediastinal contours are normal. There is no evidence for pulmonary edema. Subtl e interstitial thickening is probably chronic. IMPRESSION: No acute cardiopulmonary findings. ACT 112: Negative or not required by law. Electronically signed by: Perry Enriquez M.D. 12/30/2021 8:15 AM
[2021-12-30] MEDS: allopurinoL 300 MG TAB PO SCH (09:21)
[2021-12-30] MEDS: INSULIN ASPART PER UNIT SC SCH ×4 (09:22→21:10)
[2021-12-30] MEDS: LANTUS PER UNIT CHARGE SQ SCH ×2 (09:27→21:07)
--- NOTE | 2021-12-30 12:19 | Cardiology Consultation ---
Date of Consultation December 30, 2021 History of Present Illness Reason for Consultation: Complete heart block, fatigue and shortness of breath. Attending Physician: Jenaro Barbosa History of Present Illness This a very pleasant 56-year-old gentleman who notes acutely last Friday he woke up with epigastric discomfort and was short of breath. He notes over the ensuing week he had significant fatigue with activity and lightheadedness and dizziness. He had some shortness of breath even at rest. This was all new for him he has had some tunnel vision if he walks a distance. And he knows just try to walk from the front door of the hospital into the ER he was profoundly dyspneic yesterday. He denies any recent car rides or plane rides or recent surgery. Denies any lower extremity edema there is no family history or personal history of DVT or pulmonary embolism. He has had a chronic right bundle branch block as an outpatient. He denies any PND orthopnea. He denies any vik syncope. Prior to a week ago Friday he felt very well without any cardiac complaints. He denies any recent tick bites. In the ER he was found to be in complete heart block with a junctional escape rhythm in the low 40s he was also found to have frequent runs of nonsustained VT up to 8 beats in duration. The rest of complete her systems otherwise negative Allergies Allergy/AdvReac Type Severity Reaction Status Date / Time No Known Allergies Allergy Verified 12/30/21 01:25 Home Medications Medication Instructions Recorded Confirmed Type multivitamin 1 tab PO QAM 02/11/19 12/30/21 History triamcinolone acetonide 0.1 % 1 applic topical BID #80 grams 03/12/21 12/30/21 Rx topical cream albuterol sulfate 90 mcg/actuation 2 puff inhalation Q6H PRN 06/26/21 12/30/21 Rx aerosol inhaler Shortness Of Breath #18 grams allopurinol 300 mg tablet 300 mg PO QAM #90 tabs 08/26/21 12/30/21 Rx celecoxib 100 mg capsule (Celebrex) 100 mg PO BID pain #60 caps 08/26/21 12/30/21 Rx diltiazem HCl 300 mg 300 mg PO QAM #90 caps 08/26/21 12/30/21 Rx capsule,extended release 24 hr hydrochlorothiazide 25 mg tablet 25 mg PO QAM #90 tabs 08/26/21 12/30/21 Rx irbesartan 300 mg tablet 300 mg PO QAM #90 tabs 08/26/21 12/30/21 Rx simvastatin 40 mg tablet 40 mg PO HS #90 tabs 08/26/21 12/30/21 Rx spironolactone 25 mg tablet 25 mg PO QAM #90 tabs 08/26/21 12/30/21 Rx metformin 500 mg tablet,extended 1,000 mg PO BID #360 tabs 09/03/21 12/30/21 Rx release 24 hr semaglutide (weight loss) 2.4 0 mg subcut WE 12/30/21 12/30/21 History mg/0.75 mL subcutaneous pen injector (Akira) Patient History Medical History Asthma inhaler prn Chronic kidney disease follows with Dr. Estrada Diabetes mellitus, type 2 Diverticulosis Dyslipidemia Gout Hypertension Right bundle branch block Sleep apnea bipap Surgical History History of colonoscopy with polypectomy History of thyroid surgery benign cyst removed History of tonsillectomy and adenoidectomy Status post correction of deviated nasal septum Status post uvulopalatopharyngoplasty Family History Mother Family history of diabetes mellitus Father Family history of diabetes mellitus Other No family history of adverse response to anesthesia Denies family history of Crohn's disease Colorectal cancer Ulcerative colitis Social History Smoking Status: Unknown if ever smoked Second Hand Exposure: Yes (work environment); Hx Alcohol Use: No Hx Substance Use: No Preferred Language: Tamazight Communication Ability: Effective Child Welfare Social Worker Required: No Beliefs That Will Affect Care: None Current Living Situation: Spouse Current Living Situation Comment: Lives with and 3 kids Feels Safe at Home: Yes Assistive Devices: BiPap Results & Data ([facility]) Vital Signs (Past 12 Hours) Vital Signs Temp Pulse Pulse Pulse Resp BP BP 12/30/21 08:00 12/30/21 07:54 42 L 12 98/57 L 12/30/21 03:05 37.1 C 40 L 16 102/49 L 12/30/21 03:33 45 L 12/30/21 03:30 92 H 19 12/30/21 03:15 12/30/21 03:13 37.0 C 41 L 26 H 122/78 12/30/21 02:31 39 L 23 129/59 L 12/30/21 02:00 49 L 20 121/59 L 12/30/21 01:31 47 L 20 114/57 L 12/30/21 01:00 42 L 21 114/53 L 12/30/21 00:30 43 L 19 133/62 Pulse Ox O2 Del Method 12/30/21 08:00 Room Air 12/30/21 07:54 94 CPAP 12/30/21 03:05 92 12/30/21 03:33 12/30/21 03:30 94 12/30/21 03:15 Room Air 12/30/21 03:13 94 Room Air 12/30/21 02:31 98 Room Air 12/30/21 02:00 95 Room Air 12/30/21 01:31 95 Room Air 12/30/21 01:00 97 Room Air 12/30/21 00:30 95 Room Air He is awake alert and oriented x3 he does appear mildly short of breath in sentences HEENT 2+ carotid upstrokes no evidence of carotid bruits Lungs: Clear to auscultation bilaterally no rales rhonchi or wheezing Heart: Bradycardic (regular) no appreciable murmurs Abdomen: Obese nontender nondistended positive bowel sounds Extremities: No clubbing cyanosis or edema Psychiatric: His affect appeared appropriate IMPRESSIONS: 1. Complete heart block with a junctional escape rhythm at 42 bpm 2. Frequent episodes of nonsustained VT up to 8 beats in duration 3. Obstructive sleep apnea tolerating CPAP at home 4. Normal Lyme titer and thyroid studies this admission 5. History of right bundle branch block as an outpatient 6. His right ventricle appears dilated and hypokinetic his LV function appears preserved Given his significant ventricular ectopy and the concern for longer runs of nonsustained VT or even sustained ventricular tachycardia we recommended placing a temporary pacemaker wire today. This was discussed with the Passport Support Manager As well as the patient. We discussed the risks and benefits of both a temporary pacemaker and permanent pacemaker implantation we also discussed the long-term limitations associated with a permanent pacemaker implantation specifically that he will not be able to [place]. We then can overdrive pace the ventricular ectopy and start him on beta-blockers As well as keep his potassium greater than 4 and his magnesium greater than 2.0. This will need to be replaced in the ICU. I also think he is having some underlying heart failure symptoms with a cough due to low cardiac output. He also appears to have some acute kidney injury and is not known to have kidney disease as an outpatient. Likely this is from hypoperfusion. Given his right bundle branch block and the fact that he is under the age of 59 with complete heart block does raise the concern for cardiac sarcoid. Arrhythmogenic right ventricular cardiomyopathy is another possibility. He will need a PET CT scan as an outpatient versus cardiac MRI. Hopefully will be able to his pace him to avoid chronic RV pacing and the risk of a cardiomyopathy. We will make him n.p.o. after midnight and plan for permanent pacemaker implantation tomorrow. After his temporary wire he will be moved to the ICU. Further recommendations be forthcoming
[2021-12-30] MEDS ORDERED: MIDAZOLAM HCL 1 MG/ML 2ML VIAL ONE (12:23)
[2021-12-30] MEDS ORDERED: fentaNYL citrate 100 MCG/2 ML VIAL ONE (12:23)
[2021-12-30] MEDS ORDERED: LIDOCAINE 1% LOCAL 20 ML VIAL ONE (12:30)
--- NOTE | 2021-12-30 13:28 | Electrophysiology Report ---
Date of Service December 30, 2021 NOTE: THIS DOCUMENT WAS ENTERED IN ERROR Electrophysiology Procedure Electrophysiology Procedure Report Temporary pacer lead insertion[place] [facility] [place] codes Indication for Procedure (1) Complete heart block:
--- NOTE | 2021-12-30 13:33 | Pre Anesthesia Assessment ---
Date of Service December 30, 2021 Pre Sedation Assessment Vital Signs Temp Pulse Pulse Pulse Resp BP BP 12/30/21 08:00 12/30/21 07:54 42 L 12 98/57 L 12/30/21 03:05 37.1 C 40 L 16 102/49 L 12/30/21 03:33 45 L 12/30/21 03:30 92 H 19 12/30/21 03:15 12/30/21 03:13 37.0 C 41 L 26 H 122/78 12/30/21 02:31 39 L 23 129/59 L 12/30/21 02:00 49 L 20 121/59 L 12/30/21 01:31 47 L 20 114/57 L 12/30/21 01:00 42 L 21 114/53 L 12/30/21 00:30 43 L 19 133/62 12/30/21 00:00 47 L 13 118/62 12/29/21 23:31 44 L 16 152/92 H 12/29/21 23:25 54 L 15 159/72 H 12/29/21 23:17 36.0 C L 50 L 22 Pulse Ox O2 Del Method 12/30/21 08:00 Room Air 12/30/21 07:54 94 CPAP 12/30/21 03:05 92 12/30/21 03:33 12/30/21 03:30 94 12/30/21 03:15 Room Air 12/30/21 03:13 94 Room Air 12/30/21 02:31 98 Room Air 12/30/21 02:00 95 Room Air 12/30/21 01:31 95 Room Air 12/30/21 01:00 97 Room Air 12/30/21 00:30 95 Room Air 12/30/21 00:00 98 Room Air 12/29/21 23:31 98 Room Air 12/29/21 23:25 97 Room Air 12/29/21 23:17 97 Room Air Cardiovascular + bradycardic + S1 normal and + S2 normal Additional Comments: Neck is short and thick. Respiratory Additional Comments: Dyspnea while lying flat. Otherwise no respiratory distress. Pre-Sedation Airway Assessment Smoking Status: Unknown if ever smoked Short, Thick Neck: Yes Mallampati Class: III ASA IV Procedure Planning Contraindications for Sedation: none Current Medications Reviewed: Yes Notes The planned sedation has been discussed with the patient. Informed Consent was obtained. I have identified the patient, determined the appropriateness of sedation and have assessed the patient immediately prior to the procedure. All medicine(s) and interventions are by my order. Plan for transvenous pacer to temporize until permanent pacemaker can be implanted tomorrow. [facility] [place] Procedure Codes (Charges) Indication for Procedure Indication for procedure: Unstable complete heart block
--- NOTE | 2021-12-30 13:43 | Post Operative Brief Note ---
Cardiology Brief Post Op Date of Surgery December 30, 2021 NOTE: THIS DOCUMENT WAS ENTERED IN ERROR. Pre & Post Diagnosis Operation Date: 12/30/21 12:30 <No data on this case meets the specified criteria> Complete heart block and brief episodes of ventricular tachycardia Brief description: Patient was brought to the cardiac catheterization suite where he was shaved and prepped in a sterile fashion. Sedated using 1 mg IV Versed and 25 mcg IV fentanyl. Right neck was prepped and then the soft tissues were anesthetized using 2 mL of 1% Xylocaine. Under ultrasonic guidance, the right IJ vein was identified and accessed using a micropuncture needle. The micropuncture sheath was then inserted. Over 8.035 J-tip wire the micropuncture sheath was exchanged for a 6 [place] venous sheath. Through this, the 5 [place] temporary pacing lead was advanced with the balloon inflated and positioned near the apex of the RV. Initial pacing at 100 bpm and 10 mA. We did reduce the milliamps to 5 mA and there was persistent capture. Below 5 mA there was not persistent capture. The pacing rate was then reduced to 80 bpm. The sheath was sutured in place and the pacing lead was externally fixed to the hub as well as with Tegaderm. Patient remained hemodynamically stable and asymptomatic. He was returned to the recovery area. This ended the case. Fluoroscopy time: 15 minutes. 141 mGy. Sedation time: 13 minutes Procedure Ultrasound-guided vascular access Temporary pacemaker lead insertion Eyelet Operator Royal Garza MD, PhD [employer] [place]ia Estimated Blood Loss 5 Findings Consistent with Post-Op Diagnosis Adequate capture at 5 mA Initial paced heart rate 100 bpm reduced to 80 bpm Sensitivity: 2 Fluids Normal saline Anesthesia Type Local Complications None Disposition Disposition: Surgical ICU Overlapping Procedure I was present for: the critical portions of procedure. (Entirety of procedure) [facility] Cardiac Procedure Charge Indication for Procedure Indication for procedure: Complete heart block
[2021-12-30] MEDS ORDERED: POTASSIUM CHLORIDE CRTAB 20 MEQ TABCR PO STA (13:51)
--- NOTE | 2021-12-30 13:53 | Cardiac Catheterization ---
[facility] Data: Last Picker Cardiac Status Clinical evaluation leading to the procedure CAD Presenation: No Sxs, No angina Diagnostic Physicians Name: Royal Garza MD, PhD Closure Device Recommendations: Management Recommendatons (Continue medical management as recommended by Dr. Brandon. Tentative plan for permanent pacemaker insertion tomorrow.) Cardiac Cath Procedure Full Procedure Date December 30, 2021 Pre-Procedure Diagnosis Pre-Procedure Diagnosis: Arrhythmia (Complete heart block, nonsustained ventricular tachycardia) AUC Score AUC Score: 08 Post-Procedure Diagnosis Post-Procedure Diagnosis: Cardiothoracic Finding (Complete heart block) Procedure(s) Performed Procedure(s) Performed: Temporary Pacemaker and Ultrasound Guided Vascular Access Boiler Erector Royal Garza MD, PhD Estimated Blood Loss Estimated Blood Loss: 5 mL Summary of Findings Brief description: Patient was brought to the cardiac catheterization suite where he was shaved and prepped in a sterile fashion. Soft tissues of the right neck were anesthetized using 2 mL of 1% Xylocaine. Using ultrasound for guidance, the right internal jugular vein was identified and accessed. A micro puncture needle was initially used and was exchanged for a micropuncture sheath. Then, using a 0.035 straight wire the micropuncture sheath was exchanged for a 6 [place] venous sheath. Through this, the 5 [place] temporary pacing wire was inserted and the balloon was inflated. Under fluoroscopic guidance the lead was directed to the apex of the RV. The balloon was deflated and initially pac ing was performed at 100 bpm, 10 mA, and a sensitivity of 2. The milliamps were reduced sequentially with loss of capture occurring below 5 mA. The current then was set at 7 mA and the pacing rate was reduced to 80 bpm. Patient remained hemodynamically stable and asymptomatic. This sheath was sutured in place. The temporary pacing lead was fixated at the sheath and with a Tegaderm. Patient was then returned to the recovery area in stable condition. This ended the case. Hemodynamics Rest Ao:: NA (see scanned report) Final Ao: NA (see scanned report) LV: NA Recommendations Recommendations: Management Recommendatons (Continue medical management as recommended by Dr. Brandon. Tentative plan for permanent pacemaker insertion tomorrow.) Radiation Exposure (mGy) 141 Contrast (mls) None Anesthesia 1 mg Versed, 25 mcg fentanyl. Sedation time: 13 minutes Procedural Complication(s) None Disposition ICU I attest to the content of the Intraoperative Record and any orders documented therein. Any exceptions are noted below. [facility] Card Cath Procedure Codes Therapeutic Services & Ancillary Procedure 1: Cardiovascular Tx and Anc Procedures: 53849 Temp Pacer Insert (Right IJ) Procedure 2: Cardiovascular Tx and Anc Procedures: 32305 Ultrasonic Guidance Vascular Access (Right IJ) Moderate Sedation Procedure 1: Sedation/Anesthesia: 27873 Mod Sedation by the same physician;Init15 Min Child Age 5 & Up PG Care Time/CCT Total # of Minutes Spent Total Time Spent with Patient: Total time spent is greater than 50% in coordination of care (as documented) at patient's floor/unit and/or counseling patient:
[2021-12-30] MEDS ORDERED: METOPROLOL TARTRATE 25 MG TAB PO STA (14:00)
--- NOTE | 2021-12-30 15:10 | Electrocardiogram Report ---
Test Reason : Blood Pressure : / mmHG Vent. Rate : 051 BPM Atrial Rate : 120 BPM P-R Int : 000 ms QRS Dur : 106 ms QT Int : 542 ms P-R-T Axes : 069 010 049 degrees QTc Int : 499 ms Sinus tachycardia with complete heart block and Junctional rhythm with frequent Premature ventricular complexes Low voltage QRS Right bundle branch block Nonspecific ST abnormality Prolonged QT Abnormal ECG When compared with ECG of 02-MAR-2012 13:38, Junctional rhythm has replaced Sinus rhythm Vent. rate has decreased BY 32 BPM PVC's are new Confirmed by Honorio Brandon ([id number]) on 12/30/2021 3:09:57 PM Referred By: REFERRED SELF Confirmed By:Honorio Brandon
--- NOTE | 2021-12-30 16:13 | Critical Care Consultation ---
Date of Consultation December 30, 2021 Assessment & Plan (1) Complete heart block: Reason Critically Ill: 56-year-old male with complete heart block requiring temporary venous pacemaker and nonsustained ventricular tachycardia. PLAN: Resp: Severe obstructive sleep apnea -Patient may use home BiPAP 03/12 CV: Complete heart block -Temporary pacemaker inserted -Tentative plan for permanent pacemaker tomorrow -Lyme disease pending Possible cor pulmonale -CTA chest pending in orders -Reasonable to defer given renal insufficiency -Elevated d-dimer -Bilateral venous duplex: Rule out venous thromboembolism -I think thromboembolic disease is unlikely underlying cause for right ventricular dysfunction given severe sleep apnea Hypertension -Holding Cardizem at this time Fluids/Renal: Acute kidney injury -Urinalysis unremarkable -Renal ultrasound -Check fractional excretion of urea Chronic kidney disease -Continue follow-up with primary care GI/Nutrition: Dyslipidemia -Simvastatin 40 mg daily Heme: Anemia -Hemoccult pending -We will require follow-up with PCP for possible colonoscopy DVT prophylaxis: SCDs: Chemoprophylaxis contraindicated for planned permanent pacemaker tomorrow Endocrine: ICU hyperglycemia protocol Type 2 diabetes -On metformin hold -A1c pending Vascular access: Peripheral IV Code Status: Full code Disposition: ICU (2) Dyslipidemia: (3) Morbid obesity: (4) Hypertension: (5) Severe obstructive sleep apnea: (6) Diabetes mellitus type II, controlled: (7) CKD (chronic kidney disease): History of Present Illness Reason for Consultation: Symptomatic bradycardia with nonsustained ventricular tachycardia Attending Physician: Jenaro Barbosa History of Present Illness Patient is a 56-year-old male with a past medical history of hypertension hyperlipidemia diabetes and chronic kidney disease who presented to the emergency department for 1 week of substernal chest pain and exertional dyspnea. Patient was found to be in acute heart block. Patient was admitted to the hospital on telemetry status with external pacemakers. While in the hospital he was noted to have frequent runs of nonsustained ventricular tachycardia and was sent to the cardiac [facility] [facility] for temporary pacemaker placement. Allergies Allergy/AdvReac Type Severity Reaction Status Date / Time No Known Allergies Allergy Verified 12/30/21 01:25 Home Medications Medication Instructions Recorded Confirmed Type multivitamin 1 tab PO QAM 02/11/19 12/30/21 History triamcinolone acetonide 0.1 % 1 applic topical BID #80 grams 03/12/21 12/30/21 Rx topical cream albuterol sulfate 90 mcg/actuation 2 puff inhalation Q6H PRN 06/26/21 12/30/21 Rx aerosol inhaler Shortness Of Breath #18 grams allopurinol 300 mg tablet 300 mg PO QAM #90 tabs 08/26/21 12/30/21 Rx celecoxib 100 mg capsule (Celebrex) 100 mg PO BID pain #60 caps 08/26/21 12/30/21 Rx diltiazem HCl 300 mg 300 mg PO QAM #90 caps 08/26/21 12/30/21 Rx capsule,extended release 24 hr hydrochlorothiazide 25 mg tablet 25 mg PO QAM #90 tabs 08/26/21 12/30/21 Rx irbesartan 300 mg tablet 300 mg PO QAM #90 tabs 08/26/21 12/30/21 Rx simvastatin 40 mg tablet 40 mg PO HS #90 tabs 08/26/21 12/30/21 Rx spironolactone 25 mg tablet 25 mg PO QAM #90 tabs 08/26/21 12/30/21 Rx metformin 500 mg tablet,extended 1,000 mg PO BID #360 tabs 09/03/21 12/30/21 Rx release 24 hr semaglutide (weight loss) 2.4 0 mg subcut WE 12/30/21 12/30/21 History mg/0.75 mL subcutaneous pen injector (Akira) Patient History Medical History Asthma inhaler prn Chronic kidney disease follows with Dr. Estrada Diabetes mellitus, type 2 Diverticulosis Dyslipidemia Gout Hypertension Right bundle branch block Sleep apnea bipap Surgical History History of colonoscopy with polypectomy History of thyroid surgery benign cyst removed History of tonsillectomy and adenoidectomy Status post correction of deviated nasal septum Status post uvulopalatopharyngoplasty Family History Mother Family history of diabetes mellitus Father Family history of diabetes mellitus Other No family history of adverse response to anesthesia Denies family history of Crohn's disease Colorectal cancer Ulcerative colitis Social History Smoking Status: Unknown if ever smoked Second Hand Exposure: Yes (work environment); Hx Alcohol Use: No Hx Substance Use: No Preferred Language: Divehi Communication Ability: Effective [employer] Machine Operator Required: No Beliefs That Will Affect Care: None Current Living Situation: Spouse Current Living Situation Comment: Lives with and 3 kids Feels Safe at Home: Yes Assistive Devices: BiPap Review of Systems Review of Systems: Denies chest pain shortness of breath is improved. Physical Exam Physical Exam: General: Alert. nontoxic. Skin: Warm, dry, Head: Atraumatic Neck: Temporary pacemaker present Ears, nose, mouth and throat: airway patent Cardiovascular: Normal peripheral perfusion Respiratory: no respiratory distress Gastrointestinal: Non distended Musculoskeletal: No deformity Results & Data Results & Data ([facility]) Vital Signs (Past 12 Hours) Vital Signs Pulse Pulse Resp BP BP Pulse Ox O2 Del Method 12/30/21 15:00 80 18 125/93 93 12/30/21 14:00 82 24 119/85 90 12/30/21 13:27 83 19 137/84 90 Room Air 12/30/21 15:02 Room Air 12/30/21 08:00 Room Air 12/30/21 07:54 42 L 12 98/57 L 94 CPAP Critical Care Results & Data Vital Signs (Past 12 Hours) Vital Signs Pulse Pulse Resp BP BP Pulse Ox O2 Del Method 12/30/21 16:38 80 12/30/21 15:00 80 18 125/93 93 12/30/21 14:00 82 24 119/85 90 12/30/21 13:27 83 19 137/84 90 Room Air 12/30/21 15:02 Room Air 12/30/21 08:00 Room Air 12/30/21 07:54 42 L 12 98/57 L 94 CPAP Lab & Micro Results (Past 24 Hours) RBC 4.12 M/uL (4.63-6.08) L 12/29/21 WBC 12.49 K/ul (4.8-10.8) H 12/29/21 Hgb 12.0 g/dl (14.0-18.0) L 12/29/21 Hct 37.6 % (40.1-51.0) L 12/29/21 MCV 91.3 fL (80.0-100.0) 12/29/21 MCH 29.1 pg (25.0-34.0) 12/29/21 MCHC 31.9 g/dL (32.0-36.0) L 12/29/21 RDW Standard Deviation 51.8 fL (36.4-46.3) H 12/29/21 RDW Coefficient of Variation 15.6 % (11.5-14.5) H 12/29/21 Plt Count 219 K/uL (130-400) 12/29/21 MPV 12.2 fL (9.4-12.4) 12/29/21 Neutrophils (%) (Auto) 63.0 % 12/29/21 Lymphocytes (%) (Auto) 22.4 % 12/29/21 Monocytes # (Auto) 1.34 K/uL (0.24-0.82) H 12/29/21 Eosinophils # (Auto) 0.35 K/uL (0-0.50) 12/29/21 Immature Granulocyte % (Auto) 0.7 % 12/29/21 Neutrophils # (Auto) 7.86 K/uL (1.4-6.5) H 12/29/21 Lymphocytes # (Auto) 2.80 K/uL (1.2-3.4) 12/29/21 Monocytes # (Auto) 1.34 K/uL (0.24-0.82) H 12/29/21 Eosinophils # (Auto) 0.35 K/uL (0-0.50) 12/29/21 Basophils # (Auto) 0.05 K/uL (0-0.2) 12/29/21 Immature Granulocyte # (Auto) 0.09 K/uL (0.00-0.02) H 12/29 Na 139 mmol/L (136-145) 12/29/21 K 3.7 mmol/L (3.5-5.1) 12/29/21 Cl 107 mmol/L (98-107) 12/29/21 CO2 21 mmol/L (21-32) 12/29/21 Anion Gap 11 (3-11) 12/29/21 BUN 36 mg/dl (6-23) H 12/29/21 Creatinine 1.84 mg/dl (0.6-1.4) H 12/29/21 Estimated GFR ( Amer) 46.1 ml/min 12/29/21 Estimated GFR (Non-Af Amer) 39.8 ml/min 12/29/21 BUN/Creatinine Ratio 19.6 (10-20) 12/29/21 Glu 111 mg/dl (70-99(Fasting)) H 12/29/21 Ca 9.6 mg/dl (8.5-10.1) 12/29/21 Phosphorus Level 4.0 mg/dl (2.5-4.9) 12/29/21 Total Bilirubin 0.2 mg/dl (0.2-1.0) 12/29/21 AST 14 U/L (13-39) 12/29/21 ALT 26 U/L (7-52) 12/29/21 Alkaline Phosphatase 54 U/L (34-104) 12/29/21 TP 6.8 gm/dl (6.0-8.3) 12/29/21 Albumin 3.9 gm/dl (3.4-5.0) 12/29/21 Globulin 2.9 gm/dl (2.5-4.0) 12/29/21 Albumin/Globulin Ratio 1.3 (0.9-2) 12/29/21 Mg 1.6 mg/dl (1.7-2.4) L 12/29/21 23:26 Calcium Level 9.6 mg/dl (8.5-10.1) 12/29/21 23:26 Prothromb Time International Ratio 1.0 (0.9-1.1) 12/29/21 23:2 6 Diagnostic Findings (Past 24 Hours) Chest X-Ray 12/29/21 23:25 XR chest 1V portable CLINICAL HISTORY: Atypical chest pain. COMPARISON STUDY: Chest radiograph June 07, 2015. FINDINGS: Lung volumes are normal. Lungs are clear. There is no pneumothorax or pleural effusion. Cardiac size is normal. Mediastinal contours are normal. There is no evidence for pulmonary edema. Subtle interstitial thickening is probably chronic. IMPRESSION: No acute cardiopulmonary findings. ACT 112: Negative or not required by law. Electronically signed by: Perry Enriquez M.D. 12/30/2021 8:15 AM I & O Totals 24 Hours 12/29/21 12/30/21 12/31/21 06:59 06:59 06:59 Intake Total 250 / 250 Output Total 300 / 300 Balance 250 / 250 -300 / -300 Cumulative 12/29/21 23:13 thru 12/30/21 15:17 Intake Total 250 Output Total 300 Balance -50 RT Ventilator Mngmt (Last Documented) Ventilator Ordered Settings Respiratory Rate 18 12/30/21 15:00 Ventilator - PT Measurements Respiratory Rate 18 Coding Level of Care Code 34214 Inpt Consult Level 4 Diagnoses Complete heart block I44.2 Dyslipidemia E78.5 Morbid obesity E66.01 Hypertension I10 Severe obstructive sleep apnea G47.33 Diabetes mellitus type II, controlled E11.9 CKD (chronic kidney disease) N18.9
[2021-12-30 19:34] LABS: Creatinine Urine Random 51.2 mg/dl
[2021-12-30] MEDS: SIMVASTATIN 40 MG TAB PO SCH (21:06)
[2021-12-30] MEDS: MAGNESIUM OXIDE 400 MG TAB PO SCH (21:06)
[2021-12-30] MEDS: METOPROLOL TARTRATE 25 MG TAB PO SCH (22:53)
[2021-12-31 05:10] LABS: Hematocrit (blood only) 38.2 % (40.1-51.0); Hemoglobin 12.4 g/dl (14.0-18.0); Mean Corpuscular Hemoglobin 28.3 pg (25.0-34.0); Mean Corpuscular Hgb Conc 32.5 g/dL (32.0-36.0); Mean Corpuscular Volume 87.2 fL (80.0-100.0); Mean Platelet Volume 11.3 fL (9.4-12.4); Platelet Count 215 K/uL (130-400); RDW Coefficient of Variation 15.1 % (11.5-14.5); RDW Standard Deviation 48.5 fL (36.4-46.3); Red Blood Count 4.38 M/uL (4.63-6.08); White Blood Count 10.14 K/ul (4.8-10.8)
[2021-12-31 05:45] LABS: BUN Creatinine Ratio 16.8 (10-20); Calcium 9.2 mg/dl (8.5-10.1); Creatinine Clr Calc Pharmacy 82.2 ml/min; Est GFR (African American) 73.6 ml/min; Est GFR (Non-African American) 63.5 ml/min; Potassium 4.7 mmol/L (3.5-5.1)
[2021-12-31 06:46] LABS: Estimated Average Glucose 134 mg/dl; Hemoglobin A1C 6.3 % (4.5-5.6)
[2021-12-31] MEDS: INSULIN ASPART PER UNIT SC SCH ×4 (07:16→19:59)
[2021-12-31 07:35] LABS: Lyme Ab IgG w/WB Rflx Negative (Negative); Lyme Ab IgM w/WB Rflx Negative (Negative)
[2021-12-31] MEDS: MAGNESIUM OXIDE 400 MG TAB PO SCH ×2 (08:13→19:49)
[2021-12-31] MEDS: allopurinoL 300 MG TAB PO SCH (08:13)
--- NOTE | 2021-12-31 08:44 | Cardiology Progress Note ---
Date of Service December 31, 2021 Assessment & Plan (1) Complete heart block: Plan IMPRESSIONS: 1. Complete heart block with a junctional escape rhythm at 42 bpm 2. Frequent episodes of nonsustained VT up to 8 beats in duration 3. Obstructive sleep apnea tolerating CPAP at home 4. Normal Lyme titer and thyroid studies this admission 5. History of right bundle branch block as an outpatient 6. His right ventricle appears dilated and hypokinetic his LV function appears preserved Mr. Mccoy is scheduled for a pacemaker placement later today for significant ventricular ectopy and the concern for longer runs of nonsustained VT or even sustained ventricular tachycardia. He has been npo since midnight. I answered his questions concerning the procedure. His beta blockers can be further titrated once he has his procedure to suppress any further ectopy and allow the pacer to overdrive it. His electrolytes have been replaced to keep his potassium greater than 4 and his magnesium greater than 2.0. Hopefully, we will be able to his atrially pace him to avoid chronic RV pacing and the risk of a cardiomyopathy. His fluid balance is net negative. He can resume his spironolactone now that his kidney function has normalized. We may need to discontinue the hctz to make room for further beta blockade at discharge. Currently his blood pressure is well controlled. Given his right bundle branch block and complete heart block under the age of 59, there is concern for cardiac sarcoid. Arrhythmogenic right ventricular cardiomyopathy is another possibility. He will need a PET CT scan as an outpatient versus cardiac MRI. Admission and Anticipated Discharge Date Admission Date: December 30, 2021 Subjective Mr. Mccoy is comfortable this morning. He denies any sob, chest pain, palpitations or edema. He continues to have a mild dry cough but no aches or chills or fevers. His pacing with a temporary pacer on the monitor Review of Systems Review of Systems: All systems reviewed & are unremarkable except as noted in HPI & below Physical Exam Constitutional: WD/WN, vitals as above Respiratory: normal respiratory effort, lungs clear to auscultation Cardiovascular: RRR, no murmur, no edema Skin: no rashes, warm and dry Neurologic: moves all extremities and awake Psychiatric: A+Ox3, euthymic affect Results & Data ([facility]) Vital Signs (Past 12 Hours) Vital Signs Temp Pulse Resp BP Pulse Ox O2 Del Method 12/31/21 08:00 80 14 93 Room Air 12/31/21 08:00 126/97 12/31/21 07:00 80 21 95 12/31/21 07:00 131/92 12/31/21 07:00 37 C 12/31/21 06:00 80 15 93 12/31/21 06:00 138/97 12/31/21 05:00 80 17 90 12/31/21 05:00 143/100 H 12/31/21 04:00 80 15 87 L 12/31/21 04:00 36.8 C 160/86 H 12/31/21 03:01 80 19 89 L 12/31/21 03:00 132/90 12/31/21 02:59 80 20 92 12/31/21 02:00 80 9 L 92 12/31/21 02:00 124/89 12/31/21 00:00 80 12/31/21 01:00 80 17 92 12/31/21 01:00 117/83 12/31/21 00:00 80 18 91 12/31/21 00:00 133/87 12/30/21 23:01 80 28 H 94 12/30/21 23:01 136/85 12/30/21 23:00 80 16 94 12/31/21 00:00 CPAP
--- NOTE | 2021-12-31 08:47 | Ultrasound Report ---
BILATERAL LOWER EXTREMITY VENOUS DOPPLER CLINICAL HISTORY: Lower extremity swelling. Pain. r/o dvt COMPARISON STUDY: Left lower extremity venous Doppler ultrasound January 23, 2017. TECHNIQUE: Sonography of the deep venous system of the bilateral lower extremities was performed. Co mpression and augmentation were evaluated. FINDINGS: The bilateral common femoral, superficial femoral and popliteal veins were compressible. A ugmentation was normal. Flow was shown within the deep calf vessels. IMPRESSION: No evidence of deep venous thrombus within the bilateral lower extremities. ACT 112: Negative or not required by law. Electronically signed by: Perry Enriquez M.D. 12/31/2021 8:46 AM
--- NOTE | 2021-12-31 09:58 | Critical Care Progress Note ---
Date of Service December 31, 2021 Assessment & Plan (1) Complete heart block: (2) Morbid obesity: (3) Severe obstructive sleep apnea: Plan Patient will undergo a permanent pacemaker placement today. Etiology of complete heart block unclear. Will defer work-up to cardiology. Possible infiltrative cardiac disease such as sarcoidosis. Lyme disease ruled out. Patient hemodynamically stable. Can likely transfer out after pacemaker placement. Continue statin, glucose control and replacement of electrolytes as indicated. Continue CPAP when sleeping for severe EMMA. Defer DVT prophylaxis to primary team. Admission and Anticipated Discharge Date Admission Date: December 30, 2021 Subjective Patient seen and examined. He is comfortable. Denies chest pain. Transvenous pacer placed in his right IJ. No shortness of breath at this time. Review of Systems Review of Systems: All systems reviewed & are unremarkable except as noted in HPI & below Physical Exam Physical Exam: General: Alert. nontoxic. Skin: Warm, dry, Head: Atraumatic Neck: Temporary pacemaker present Ears, nose, mouth and throat: airway patent Cardiovascular: Normal peripheral perfusion Respiratory: no respiratory distress Gastrointestinal: Non distended Musculoskeletal: No deformity Results & Data Results & Data ([facility]) Vital Signs (Past 12 Hours) Vital Signs Temp Pulse Resp BP Pulse Ox O2 Del Method 12/31/21 08:00 80 14 93 Room Air 12/31/21 08:00 126/97 12/31/21 07:00 80 21 95 12/31/21 07:00 131/92 12/31/21 08:36 Room Air 12/31/21 07:00 37 C 12/31/21 06:00 80 15 93 12/31/21 06:00 138/97 12/31/21 05:00 80 17 90 12/31/21 05:00 143/100 H 12/31/21 04:00 80 15 87 L 12/31/21 04:00 36.8 C 160/86 H 12/31/21 03:01 80 19 89 L 12/31/21 03:00 132/90 12/31/21 02:59 80 20 92 12/31/21 02:00 80 9 L 92 12/31/21 02:00 124/89 12/31/21 00:00 80 12/31/21 01:00 80 17 92 12/31/21 01:00 117/83 12/31/21 00:00 80 18 91 12/31/21 00:00 133/87 12/30/21 23:01 80 28 H 94 12/30/21 23:01 136/85 12/30/21 23:00 80 16 94 12/31/21 00:00 CPAP Coding Level of Care Code 09841 Subseq Hosp Care Lvl 2 Diagnoses Complete heart block I44.2 Morbid obesity E66.01 Severe obstructive sleep apnea G47.33
[2021-12-31] MEDS: METOPROLOL TARTRATE 25 MG TAB PO SCH ×2 (10:05→19:49)
--- NOTE | 2021-12-31 11:42 | Ultrasound Report ---
RENAL ULTRASOUND HISTORY: acute kidney injury - COMPARISON: Renal ultrasound 06/09/2017. FINDINGS: Right kidney: 10.4 cm. No hydronephrosis. Normal corticomedullary differentiation and cortical thickn ess. Left kidney: 12.6 cm. No hydronephrosis. Normal corticomedullary differentiation and cortical thickne ss. Bladder: No bladder wall thickening. The bilateral ureteral jets were identified. IMPRESSION: Normal renal ultrasound. ACT 112: Negative or not required by law. Electronically signed by: Johnnie Rausch M.D. 12/31/2021 11:41 AM
[2021-12-31] MEDS ORDERED: BUPIVACAINE 0.25% 30 ML VIAL ONE (12:30)
[2021-12-31] MEDS ORDERED: LIDOCAINE 1% LOCAL 20 ML VIAL ONE (12:30)
[2021-12-31] MEDS ORDERED: VANCOMYCIN HCL 1000MG/20ML VIAL ONE (12:30)
[2021-12-31] MEDS ORDERED: WATER, STERILE FOR INJ 10 ML VIAL ONE (12:30)
[2021-12-31] MEDS ORDERED: MIDAZOLAM HCL 5 MG/ML 1 ML VIAL ONE (13:21)
[2021-12-31] MEDS ORDERED: fentaNYL citrate 100 MCG/2 ML VIAL ONE ×2 (13:22→14:49)
[2021-12-31] MEDS ORDERED: ceFAZolin 330 MG/ML 1 GM VIAL ONE (13:22)
--- NOTE | 2021-12-31 13:33 | Pre Anesthesia Assessment ---
Date of Service December 31, 2021 Pre Sedation Assessment Vital Signs Temp Pulse Resp BP Pulse Ox O2 Del Method 12/31/21 08:00 80 14 93 Room Air 12/31/21 08:00 126/97 12/31/21 07:00 80 21 95 12/31/21 07:00 131/92 12/31/21 08:36 Room Air 12/31/21 07:00 37 C 12/31/21 06:00 80 15 93 12/31/21 06:00 138/97 12/31/21 05:00 80 17 90 12/31/21 05:00 143/100 H 12/31/21 04:00 80 15 87 L 12/31/21 04:00 36.8 C 160/86 H 12/31/21 03:01 80 19 89 L 12/31/21 03:00 132/90 12/31/21 02:59 80 20 92 12/31/21 02:00 80 9 L 92 12/31/21 02:00 124/89 12/31/21 00:00 80 12/31/21 01:00 80 17 92 12/31/21 01:00 117/83 12/31/21 00:00 80 18 91 12/31/21 00:00 133/87 12/30/21 23:01 80 28 H 94 12/30/21 23:01 136/85 12/30/21 23:00 80 16 94 12/31/21 00:00 CPAP 12/30/21 20:00 80 19 148/88 H 93 12/30/21 19:00 80 20 143/103 H 93 12/30/21 18:00 80 23 125/84 93 12/30/21 17:00 80 22 136/90 92 CPAP 12/30/21 16:00 80 20 142/92 H 92 12/30/21 16:38 80 12/30/21 15:00 80 18 125/93 93 12/30/21 14:00 82 24 119/85 90 12/30/21 15:02 Room Air Cardiovascular + regular rate and + regular rhythm Respiratory + respiratory effort normal Pre-Sedation Airway Assessment Smoking Status: Unknown if ever smoked Hx Sleep Apnea: Yes Hx Difficult Intubation: No Short, Thick Neck: Yes Thyromental Distance: > or= 3.5 Finger Breadths Oral Cavity: + WNL Mallampati Class: III ASA: ASA3 NPO Status Date of Last Intake of Fluids: 12/31/21 Time of Last Intake of Fluids: 07:00 Date of Last Intake of Solid Food: 12/30/21 Procedure Planning Contraindications for Sedation: none Current Medications Reviewed: Yes Notes The planned sedation has been discussed with the patient. Informed Consent was obtained. I have identified the patient, determined the appropriateness of sedation and have assessed the patient immediately prior to the procedure. All medicine(s) and interventions are by my order.
[2021-12-31] MEDS ORDERED: oxyCODONE HCL IR 5 MG TAB (IMMEDIATE RELEASE) PO PRN ×2 (15:33→18:02)
--- NOTE | 2021-12-31 15:33 | Post Anesthesia Assessment ---
Date of Service December 31, 2021 Post Sedation Assessment Vital Signs Temp Pulse Resp BP Pulse Ox O2 Del Method 12/31/21 08:00 80 14 93 Room Air 12/31/21 08:00 126/97 12/31/21 07:00 80 21 95 12/31/21 07:00 131/92 12/31/21 08:36 Room Air 12/31/21 07:00 37 C 12/31/21 06:00 80 15 93 12/31/21 06:00 138/97 12/31/21 05:00 80 17 90 12/31/21 05:00 143/100 H 12/31/21 04:00 80 15 87 L 12/31/21 04:00 36.8 C 160/86 H 12/31/21 03:01 80 19 89 L 12/31/21 03:00 132/90 12/31/21 02:59 80 20 92 12/31/21 02:00 80 9 L 92 12/31/21 02:00 124/89 12/31/21 00:00 80 12/31/21 01:00 80 17 92 12/31/21 01:00 117/83 12/31/21 00:00 80 18 91 12/31/21 00:00 133/87 12/30/21 23:01 80 28 H 94 12/30/21 23:01 136/85 12/30/21 23:00 80 16 94 12/31/21 00:00 CPAP 12/30/21 20:00 80 19 148/88 H 93 12/30/21 19:00 80 20 143/103 H 93 12/30/21 18:00 80 23 125/84 93 12/30/21 17:00 80 22 136/90 92 CPAP 12/30/21 16:00 80 20 142/92 H 92 12/30/21 16:38 80 Recovery Score Activity: Moves 4 extremities Respiration: Deep Breath/Cough Circulation: +/-20% PreAnes Value Consciousness: Fully Awake Oxygen Saturation: > 92% On Room Air Discharge Sedation Level of Care: Fast Track Phase II Post Sedation Plan On clinical assessment, the patient appears to have tolerated the sedation without complications. Patient is recovering as anticipated. Patient will continue to be monitored by nursing and may be discharged when sedation discharge criteria are met per below protocol. Upon Completions of procedure up to 15 minutes continue every 5 minute vital signs and the P.A.R. score; then discharge to a Phase I or Fast Track to Phase II per the following guidelines: * Discharge Patient to appropriate Phase II area if PAR is 8 or greater or return to pre- procedure baseline. The post - procedure orders will be as directed. * If PAR score is less than 8 or not return to pre-procedure baseline then patient will follow Phase I monitoring till PAR is reached for Phase II. The Phase I may be done in procedure room or may call to secure a Phase I area. * If naloxone or flumazenil are used for reversal, hold in Phase I for continued monitoring from when last reversal dose was given for a minimum of 60 minutes or longer pending the nurse and/or physician discretion of patient condition before discharge to Phase II. Please call the Sedation Physician to re-evaluate and complete post-note for discharge to Phase II area. Do NOT discharge from procedure sedation or Phase 1 until post- sedation evaluation note is complete by procedure /sedation MD Sedation Discharge Instructions to be given to the patient at discharge to home.
--- NOTE | 2021-12-31 15:33 | Electrophysiology Report ---
Date of Service December 31, 2021 Electrophysiology Procedure Electrophysiology Procedure Report Procedure performed: Implantation of dual-chamber permanent pacemaker with left bundle pacing lead Staff recycling manager: Malik Barron MD Indication: The patient is a 56-year-old gentleman who presented in complete heart block. He was symptomatic from the associated bradycardia. He was felt be a good candidate for permanent pacing due to symptomatic nonreversible AV node dysfunction. Dual-chamber device was selected as the patient is currently in sinus rhythm and wished to maintain AV synchrony. Procedure in detail: The patient was informed of the risks benefits and alternatives to the intended procedure and she wished to proceed. He was taken to the electrophysiology suite in a fasting state. A preoperative antibiotic had been administered. The patient was monitored electrocardiographically throughout today's procedure and conscious sedation was administered per protocol. The left upper pectoral area is prepped and draped in usual sterile fashion. This area was anesthetized using subcutaneous administration of a xylocaine solution. An incision was made at this site and carried down to the prepectoralis fascia using sharp dissection. Electrocautery was also employed for dissection as well as for hemostasis. A device pocket was fashioned tissues above the pectoralis muscle. Subsequent to this maneuver the left axillary vein was accessed using modified Seldinger technique. Sheath was placed over initial guidewire and used facilitate passage of a guiding catheter for mapping of the interventricular septum. Once an appropriate location was found the pacing lead was advanced into the interventricular septum. Adequate sensing and threshold parameters were obtained prior to removal of the guiding sheath. The proximal portion of lead was then sutured to the prepectoralis fascia using nonabsorbable suture. Sheath was placed over the remaining guidewire and used to with a passage of a pacing lead to the right atrium under fluoroscopic guidance. Adequate sensing and threshold parameters were obtained prior to active-fixation of this lead to the endocardial surface. The proximal portion of lead was then sutured to the prepectoralis fascia with nonabsorbable suture. The previously implanted temporary pacing wire was subsequently removed on fluoroscopy. The internal jugular venous sheath was also removed and hemostasis was achieved at that site using manual pressure. The device pocket was irrigated with antibiotic solution. The leads were then attached to the device. The device and leads were then placed in the pocket and pocket was closed in 3 layers of absorbable suture. Steri-Strips and sterile dressing were applied. The device was tested noninvasively prior to conclusion the procedure. The patient tolerated procedure well there no immediate complications. Equipment used: New pulse generator: [employer]. Model number: [id number] serial number [id number] Right atrial lead: [employer]. Model number: [id number] serial number [id number] Right ventricular lead: [employer]. Model number: [id number] serial number [id number] Measured data: Right atrial lead: P waves measured 4.5 mV. Pacing threshold is 1 V at 0.4 ms with a pacing impedance of 456 ohms Right ventricular lead: No intrinsic R waves are measured. Pacing threshold 0.75 V at 0.4 ms with a paced impedance of 779 ohms Impression: Successful implantation of dual-chamber permanent pacemaker with left bundle pacing lead [facility] Electrophysiology codes Pacing Procedure 1: Pacin Insert/Replace Pacer A & V PG Moderate Sedation Codes Moderate Sedation Codes Procedure 1: Sedation/Anesthesia: 13537 Mod Sedation by the same physician;Init15 Min Child Age 5 & Up Procedure 2: Sedation/Anesthesia: 72497 Mod Sedation by the same physician; Ea [id number] Minutes
[2021-12-31] MEDS: ceFAZolin 2000MG 2,000 MG/15 ML SYR IV SCH (19:50)
[2021-12-31] MEDS: SIMVASTATIN 40 MG TAB PO SCH (19:50)
--- NOTE | 2021-12-31 22:03 | Hospitalist Progress Note ---
Date of Service December 31, 2021 Assessment & Plan (1) AV heart block: Plan: 56-year-old male with history of hypertension, hyperlipidemia, diabetes and CKD presenting with 1 week of substernal chest discomfort and exertional dyspnea. Found to be in acute heart block, heart rate of 47. Blood pressure stable. Patient is awake alert and answering questions appropriately. Admit to medical telemetry Maintain external pacer pads in place in the event of cardiac decompensation temporary pacemaker placed on 12/30 -pacemaker planed for 12/31 We will hold diltiazem Cardiology consultation appreciated (2) Diabetes mellitus type II, controlled: Plan: Patient with type 2 diabetes, well controlled on metformin and semaglutide. Last hemoglobin A1c = 6.2 on 02/12/2021. Blood sugar today = 111 We will hold metformin and semaglutide Lantus 7 units twice daily with insulin sliding scale Goal blood sugar 1 10-1 40 (3) Severe obstructive sleep apnea: Plan: Chronic. Patient is compliant with his home BiPAP Continue nocturnal BiPAP 03/12, adjust as needed (4) Anemia: Plan: Patient with normochromic, normocytic anemia with Hgb = 12, HCT equals 37.6. This is slightly lower than most recent value on 02/12/2021 (Hgb = 12.8, HCT = 40.6). Patient reports that he has had some dark stools and was concerned for blood. Last colonoscopy 07/10/2017 which revealed multiple small mouth diverticuli of the sigmoid colon. Patient was recommended follow-up colonoscopy in 10 years. We will check Hemoccult Trend CBC (5) Hypertension: Plan: Blood pressure presently stable at 114/57. Patient demonstrates adequate blood pressure control upon review of previous chart values. We will hold spironolactone for now Hold irbesartan Hold hydrochlorothiazide Hold diltiazem Continue to monitor blood pressure (6) Dyslipidemia: Plan: Chronic. Stable. Continue simvastatin 40 mg p.o. nightly (7) CKD (chronic kidney disease): Plan: BUN and creatinine slightly above prior values, 36 and 1.84 respectively. Avoid nephrotoxic agents Renal dosing were needed Continue to monitor chemistry (8) Gout: Plan: Chronic. Stable. Continue allopurinol 300 mg p.o. every morning (9) Exercise-induced asthma: Plan: Chronic. Stable. Continue albuterol 2 puffs inhaled every 6 hours as needed Admission and Anticipated Discharge Date Admission Date: December 30, 2021 Subjective Patient reports feeling well. Review of Systems Review of Systems: All systems reviewed & are unremarkable except as noted in HPI & below Physical Exam Physical Exam: General: patient resting comfortably, NAD, non-toxic in a ppearance, AA&O x 4, anxious in appearance Skin: warm, dry, intact, no rashes or lesions HEENT: NC/AT, PERRL, EOMI, anicteric sclera, conjunctiva without injection, external ear normal to inspection and nontender, nares patent, moist mucus membranes, dentition intact, no oropharyngeal lesions, neck supple, trachea midline, no LAD, no thyromegaly, no JVD Heart: +S1/S2, regular, being paced. Lungs: equal air entry bilaterally, no rales/rhonchi/wheezes Abd: +BS, soft, NT/ND, no masses/organomegaly/ascites Ext: warm, 2+ pulses in UE/LE bilaterally, no clubbing/cyanosis or edema Neuro: nonfocal, patient AA&O x 4, speech intact, no facial droop, moving all extremities on command with equal strength 5/5 Results & Data Results & [facility] ([facility]) Vital Signs (Past 12 Hours) Vital Signs Pulse Pulse Resp BP BP Pulse Ox O2 Del Method 12/31/21 20:25 CPAP 12/31/21 18:15 95/77 L 12/31/21 18:15 102 H 14 90 12/31/21 18:00 101 H 18 93 12/31/21 18:00 120/85 12/31/21 17:45 118/81 12/31/21 17:45 94 H 18 94 12/31/21 17:30 99 H 17 93 12/31/21 17:30 97/83 L 12/31/21 17:15 127/82 12/31/21 17:15 98 H 16 93 12/31/21 17:01 129/92 12/31/21 17:01 96 H 14 95 12/31/21 17:00 95 H 20 96 12/31/21 16:45 94 H 15 95 12/31/21 16:30 94 H 19 92 12/31/21 16:15 93 H 17 91 12/31/21 16:15 132/96 12/31/21 16:04 91 H 16 95 12/31/21 16:03 93 H 15 94 12/31/21 16:03 152/101 H 12/31/21 13:00 80 19 93 12/31/21 13:00 137/96 12/31/21 12:00 80 20 94 12/31/21 12:00 140/102 H 12/31/21 11:00 80 18 94 12/31/21 11:00 129/98 12/31/21 15:53 91 H 16 131/108 H 98 Room Air 12/31/21 15:40 93 H 16 142/82 H 98 Room Air PG Care Time/CCT Total # of Minutes Spent Total Time Spent with Patient: Total time spent is greater than 50% in coordination of care (as documented) at patient's floor/unit and/or counseling patient: Coding Level of Care Code 72077 Subseq Hosp Care Lvl 2 Diagnoses AV heart block I44.30 Diabetes mellitus type II, controlled E11.9 Severe obstructive sleep apnea G47.33 Anemia D64.9 Hypertension I10 Dyslipidemia E78.5 CKD (chronic kidney disease) N18.9 Gout M10.9 Exercise-induced asthma J45.990 Time Spent (min) 25
[2022-01-01 05:50] LABS: Basophils # (auto) 0.03 K/uL (0-0.2); Basophils % (auto) 0.3 %; Eosinophils # (auto) 0.37 K/uL (0-0.50); Eosinophils % (auto) 3.3 %; Hematocrit (blood only) 40.3 % (40.1-51.0); Hemoglobin 13.1 g/dl (14.0-18.0); Immature Granulocytes # (auto) 0.05 K/uL (0.00-0.02); Immature Granulocytes % (auto) 0.4 %; Lymphocytes # (auto) 2.06 K/uL (1.2-3.4); Lymphocytes % (auto) 18.1 %; Mean Corpuscular Hemoglobin 28.7 pg (25.0-34.0); Mean Corpuscular Hgb Conc 32.5 g/dL (32.0-36.0); Mean Corpuscular Volume 88.2 fL (80.0-100.0); Mean Platelet Volume 11.2 fL (9.4-12.4); Monocytes # (auto) 0.89 K/uL (0.24-0.82); Monocytes % (auto) 7.8 %; Neutrophils # (auto) 7.95 K/uL (1.4-6.5); Neutrophils % (auto) 70.1 %; Platelet Count 204 K/uL (130-400); RDW Coefficient of Variation 14.7 % (11.5-14.5); RDW Standard Deviation 47.6 fL (36.4-46.3); Red Blood Count 4.57 M/uL (4.63-6.08); White Blood Count 11.35 K/ul (4.8-10.8)
[2022-01-01 06:08] LABS: BUN Creatinine Ratio 16.4 (10-20); Calcium 9.6 mg/dl (8.5-10.1); Creatinine Clr Calc Pharmacy 84.2 ml/min; Est GFR (African American) 75.8 ml/min; Est GFR (Non-African American) 65.4 ml/min; Magnesium 1.8 mg/dl (1.7-2.4); Phosphorus 3.6 mg/dl (2.5-4.9); Potassium 4.4 mmol/L (3.5-5.1)
--- NOTE | 2022-01-01 07:52 | Pulmonology Progress Note ---
Date of Service January 01, 2022 Assessment & Plan (1) Complete heart block: (2) Morbid obesity: (3) Severe obstructive sleep apnea: Plan Status post permanent pacemaker placement. Etiology of complete heart block unclear. Will defer work-up to cardiology. Possible infiltrative cardiac disease such as sarcoidosis. Lyme disease ruled out. Patient hemodynamically stable. Can transfer out of the ICU will be discharged home per hospitalist service. Continue CPAP when sleeping for severe EMMA. Defer DVT prophylaxis to primary team. ICU team to sign off. Thank you for the consult. Admission and Anticipated Discharge Date Admission Date: December 30, 2021 Subjective Patient seen and examined. Hemodynamically stable. Status post pacemaker. Minimal pain at the site of insertion. Tolerating diet. Review of Systems Review of Systems: All systems reviewed & are unremarkable except as noted in HPI & below Physical Exam Physical Exam: General: Alert. nontoxic. Skin: Warm, dry, Head: Atraumatic Neck: Permanent pacemaker placed in the left chest wall. Ears, nose, mouth and throat: airway patent Cardiovascular: Normal peripheral perfusion Respiratory: no respiratory distress Gastrointestinal: Non distended Musculoskeletal: No deformity Results & Data Results & Data ([facility]) Vital Signs (Past 12 Hours) Vital Signs Temp Pulse Resp BP Pulse Ox O2 Del Method 01/01/22 07:00 92 H 10 L 92 01/01/22 07:00 36.9 C 129/80 01/01/22 06:00 91 H 17 92 01/01/22 06:00 128/83 01/01/22 05:00 90 9 L 90 01/01/22 05:00 116/84 01/01/22 04:00 89 0 L 90 01/01/22 04:00 122/71 01/01/22 03:00 89 15 92 01/01/22 03:00 105/72 01/01/22 02:00 91 H 13 95 01/01/22 02:00 122/86 01/01/22 01:00 89 19 95 01/01/22 01:00 135/90 01/01/22 00:00 90 15 94 01/01/22 00:00 125/84 12/31/21 23:01 140/97 12/31/21 23:01 91 H 12 89 L 12/31/21 23:00 91 H 14 91 01/01/22 00:52 37.1 C 01/01/22 00:00 90 09/12/22 22:30 92 H 15 94 12/31/21 22:15 95 H 18 92 12/31/21 22:00 93 H 18 93 12/31/21 22:00 129/81 12/31/21 21:46 107/80 12/31/21 21:46 96 H 18 92 12/31/21 21:45 95 H 18 93 12/31/21 21:30 92 H 15 96 12/31/21 21:30 125/78 12/31/21 21:15 95 H 14 96 12/31/21 21:15 114/80 12/31/21 21:00 96 H 14 92 12/31/21 21:00 121/88 12/31/21 20:46 96 H 20 92 12/31/21 20:45 97 H 18 91 12/31/21 20:30 97 H 15 91 12/31/21 20:30 121/78 12/31/21 20:15 97 H 14 91 12/31/21 20:15 127/85 12/31/21 20:00 98 H 19 93 12/31/21 20:00 114/80 12/31/21 20:25 CPAP PG Care Time/CCT Total # of Minutes Spent Total Time Spent with Patient: Total time spent is greater than 50% in coordination of care (as documented) at patient's floor/unit and/or counseling patient: Coding Level of Care Code 86790 Subseq Hosp Care Lvl 2 Diagnoses Complete heart block I44.2 Morbid obesity E66.01 Severe obstructive sleep apnea G47.33
[2022-01-01] MEDS: ceFAZolin 2000MG 2,000 MG/15 ML SYR IV SCH (08:12)
[2022-01-01] MEDS: MAGNESIUM SULFATE / D5W 1 GM/100 ML BAG IV SCH ×2 (08:14→11:07)
[2022-01-01] MEDS: METOPROLOL TARTRATE 25 MG TAB PO SCH (08:15)
[2022-01-01] MEDS: allopurinoL 300 MG TAB PO SCH (08:16)
[2022-01-01] MEDS: MAGNESIUM OXIDE 400 MG TAB PO SCH (08:16)
[2022-01-01] MEDS: INSULIN ASPART PER UNIT SC SCH ×2 (08:22→11:53)
--- NOTE | 2022-01-01 08:43 | Cardiology Progress Note ---
Date of Service January 01, 2022 Assessment & Plan (1) Complete heart block: Plan IMPRESSIONS: 1. Complete heart block with a junctional escape rhythm at 42 bpm 2. Frequent episodes of nonsustained VT up to 8 beats in duration 3. Obstructive sleep apnea tolerating CPAP at home 4. Normal Lyme titer and thyroid studies this admission 5. History of right bundle branch block as an outpatient 6. His right ventricle appears dilated and hypokinetic his LV function appears preserved Mr. Mccoy is s/p dual chamber pacemaker placement [id number] for significant ventricular ectopy and the concern for longer runs of nonsustained VT or even sustained ventricular tachycardia. He is mildly tachycardic today. I discussed with him that I would like to change his metoprolol to succinate 50 mg daily. He should discontinue the spironolactone and hctz at discharge. When we see him in follow up, if he is tolerating well and has the blood pressure room we will start an KRYSTAL/ARB. His electrolytes have been replaced to keep his potassium greater than 4 and his magnesium greater than 2.0. His fluid balance is net negative. He can resume his spironolactone now that his kidney function has normalized. We may need to discontinue the hctz to make room for further beta blockade at discharge. Currently his blood pressure is well controlled. Given his right bundle branch block and complete heart block under the age of 60, there is concern for cardiac sarcoid. Arrhythmogenic right ventricular cardiomyopathy is another possibility. He will need a PET CT scan as an outpatient versus cardiac MRI. Per Dr. Barron, an MRI should wait a least 6 weeks. I will arrange device clinic and follow up with us after discharge. Admission and Anticipated Discharge Date Admission Date: December 30, 2021 Subjective Mr. Mccoy tolerated his pacer placement and has no complaints this morning. Review of Systems Review of Systems: All systems reviewed & are unremarkable except as noted in HPI & below Physical Exam Constitutional: WD/WN, vitals as above Respiratory: normal respiratory effort, lungs clear to auscultation Cardiovascular: RRR, no murmur, no edema Skin: no rashes, warm and dry Neurologic: moves all extremities and awake Psychiatric: A+Ox3, euthymic affect Results & Data ([facility]) Vital Signs (Past 12 Hours) Vital Signs Temp Pulse Resp BP Pulse Ox 01/01/22 07:00 92 H 10 L 92 01/01/22 07:00 36.9 C 129/80 01/01/22 06:00 91 H 17 92 01/01/22 06:00 128/83 01/01/22 05:00 90 9 L 90 01/01/22 05:00 116/84 01/01/22 04:00 89 0 L 90 01/01/22 04:00 122/71 01/01/22 03:00 89 15 92 01/01/22 03:00 105/72 01/01/22 02:00 91 H 13 95 01/01/22 02:00 122/86 01/01/22 01:00 89 19 95 01/01/22 01:00 135/90 01/01/22 00:00 90 15 94 01/01/22 00:00 125/84 12/31/21 23:01 140/97 12/31/21 23:01 91 H 12 89 L 12/31/21 23:00 91 H 14 91 01/01/22 00:52 37.1 C 01/01/22 00:00 90 12/31/21 22:30 92 H 15 94 12/31/21 22:15 95 H 18 92 12/31/21 22:00 93 H 18 93 12/31/21 22:00 129/81 12/31/21 21:46 107/80 12/31/21 21:46 96 H 18 92 12/31/21 21:45 95 H 18 93 12/31/21 21:30 92 H 15 96 12/31/21 21:30 125/78 12/31/21 21:15 95 H 14 96 12/31/21 21:15 114/80 12/31/21 21:00 96 H 14 92 12/31/21 21:00 121/88 12/31/21 20:46 96 H 20 92 12/31/21 20:45 97 H 18 91
[2022-01-01] MEDS ORDERED: METOPROLOL TARTRATE 25 MG TAB PO ONE (09:04)
--- NOTE | 2022-01-01 09:44 | XRay Report ---
XR chest 2V PA/lateral HISTORY: Left-sided pacemaker placement. EXACT TIME ORDERED Evaluate for pneumothorax and l COMPARISON: Chest 12/29/2021. FINDINGS: Interval placement left-sided dual-chamber pacemaker. The leads appear intact. No pneumotho rax. No pleural effusions. The cardiac silhouette is top normal in size. There is mild interstitial t hickening. This is similar to the prior study. No new focal lung consolidations to suggest pneumonia. IMPRESSION: 1. Interval placement of a left-sided dual-chamber pacemaker. No pneumothorax. 2. There is mild interstitial thickening, unchanged. ACT 112: Negative or not required by law. Electronically signed by: Johnnie Rausch M.D. 01/01/2022 9:41 AM
--- NOTE | 2022-01-01 10:29 | Cardiology Progress Note ---
Date of Service January 01, 2022 Assessment & Plan (1) Complete heart block: Plan 1. Complete heart block: Successful placement of dual-chamber permanent pacemaker with left bundle pacing lead yesterday. Normal function device without evident complication. At some point the pacing configuration on the ventricular lead could be changed to bipolar. There was some anodal stimulation down to 2 volts on bipolar. The paced QRS looks better in unipolar currently. This can be adjusted over time. I asked not to raise the left arm above the shoulder behind the neck for 6 weeks. Ate the Steri-Strips should stay on his wound initial refrain from getting wet for at least 5 days. Admission and Anticipated Discharge Date Admission Date: December 30, 2021 Subjective this morning patient reported minimal discomfort at the left pectoral implant site. Some discomfort when raising the left arm or using left arm. Much improved from yesterday. Review of Systems Review of Systems: Per HPI Physical Exam Physical Exam: the device implant site had some dried blood around the incision. No active bleeding. No hematoma. No erythema or significant tenderness. Results & Data ([facility]) Vital Signs (Past 12 Hours) Vital Signs Temp Pulse Resp BP Pulse Ox O2 Del Method 01/01/22 08:05 Room Air 01/01/22 07:00 92 H 10 L 92 01/01/22 07:00 36.9 C 129/80 01/01/22 06:00 91 H 17 92 01/01/22 06:00 128/83 01/01/22 05:00 90 9 L 90 01/01/22 05:00 116/84 01/01/22 04:00 89 0 L 90 01/01/22 04:00 122/71 01/01/22 03:00 89 15 92 01/01/22 03:00 105/72 01/01/22 02:00 91 H 13 95 01/01/22 02:00 122/86 01/01/22 01:00 89 19 95 01/01/22 01:00 135/90 01/01/22 00:00 90 15 94 01/01/22 00:00 125/84 12/31/21 23:01 140/97 12/31/21 23:01 91 H 12 89 L 12/31/21 23:00 91 H 14 91 01/01/22 00:52 37.1 C 01/01/22 00:00 90 12/31/21 22:30 92 H 15 94 Diagnostic Findings I performed a complete device interrogation which revealed normal sensing on both the atrial ventricular leads. Normal threshold. There was some anodal stimulation in the bipolar ventricular setting down to voltages of 2. thresholds were normal in both unipolar and bipolar setting. Programmed unipolar currently. Chest x-ray demonstrated adequate lead position without evidence of pneumothorax.
--- NOTE | 2022-01-01 13:46 | Discharge Summary ---
Date of Service date of admission - December 30, 2021 date of discharge - January 01, 2022 Admission HPI Per Admitting Provider Lorenzo Mccoy is a pleasant 56yo male with history of hypertension, hyperlipidemia, diabetes, CKD, EMMA on nocturnal BiPAP presenting with shortness of breath and substernal chest discomfort that began acutely last week. Patient reports he was resting in bed when he became acutely short of breath. Since then he has had progressive dyspnea at rest as well as with minimal exertionbecoming short of breath with ambulating short distances in his home. He has substernal chest discomfort as well as dizziness. Patient denies fever, chills, cough, abdominal pain, nausea, vomiting, constipation. He has loose stools at baseline secondary to metformin use Denies known tick bites No known cardiac conditions. No prior CT, history of heart failure or arrh ythmia. He denies symptoms of failure to include edema, orthopnea, weight gain. In the ER patient found to be in complete heart block. Blood pressure has remained stable, heart rate in the 40s. Patient is awake alert oriented and appropriate. Presently denies chest pain, shortness of breath. ER course: Harmans 5/325 x 1 tablet, normal saline at 250 mL/h x 1 L Principal Diagnosis Complete Heart Block s/p permanent pacemaker placement Discharge Exam gen - NAD, morbidly obese mouth - MMM neck - no JVD heart - RRR, s1 s2, no murmur lungs - CTA b/l chest - pacemaker site clean/dry/intact; steri strips intact; no hematoma abd - soft NT ND BS+ ext - no edema, pulses 2+ b/l psych - a/o x 3 Discharge Data Allergies Allergy/AdvReac Type Severity Reaction Status Date / Time No Known Allergies Allergy Verified 12/30/21 01:25 Consultations [facility] Cardiac Electrophysiology - Malik Barron MD Processing Technologist Procedures Performed Operation Date: 12/30/21 12:30 Actual Procedures Ins/RemTemporary Transvenous Pacer - Royal Garza MD, PhD Ultrasound Vascular Access - Royal Garza MD, PhD Operation Date: 12/31/21 14:00 Actual Procedures Permanent Pacer with A/V Leads (Dual) - Malik Barron MD Echocardiogram - * EF 60-65%; normal LV wall motion * Right ventricular dilatation * RV free wall appears hypokinetic * IVC dilatation * PA pressures could not be assessed Ordered Studies Chest X-Ray 12/29/21 23:25 XR chest 1V portable CLINICAL HISTORY: Atypical chest pain. COMPARISON STUDY: Chest radiograph June 07, 2015. FINDINGS: Lung volumes are normal. Lungs are clear. There is no pneumothorax or pleural effusion. Cardiac size is normal. Mediastinal contours are normal. There is no evidence for pulmonary edema. Subtle interstitial thickening is probably chronic. IMPRESSION: No acute cardiopulmonary findings. ACT 112: Negative or not required by law. Electronically signed by: Perry Enriquez M.D. 12/30/2021 8:15 AM Venous Doppler Study 12/30/21 17:13 BILATERAL LOWER EXTREMITY VENOUS DOPPLER CLINICAL HISTORY: Lower extremity swelling. Pain. r/o dvt COMPARISON STUDY: Left lower extremity venous Doppler ultrasound January 23, 2017. TECHNIQUE: Sonography of the deep venous system of the bilateral lower extremities was performed. Compression and augmentation were evaluated. FINDINGS: The bilateral common femoral, superficial femoral and popliteal veins were compressible. Augmentation was normal. Flow was shown within the deep calf vessels. IMPRESSION: No evidence of deep venous thrombus within the bilateral lower extremities. ACT 112: Negative or not required by law. Electronically signed by: Perry Enriquez M.D. 12/31/2021 8:46 AM Renal Ultrasound 12/30/21 17:16 RENAL ULTRASOUND HISTORY: acute kidney injury - COMPARISON: Renal ultrasound 06/09/2017. FINDINGS: Right kidney: 10.4 cm. No hydronephrosis. Normal corticomedullary differentiation and cortical thickness. Left kidney: 12.6 cm. No hydronephrosis. Normal corticomedullary differentiation and cortical thickness. Bladder: No bladder wall thickening. The bilateral ureteral jets were identified. IMPRESSION: Normal renal ultrasound. ACT 112: Negative or not required by law. Electronically signed by: Johnnie Rausch M.D. 12/31/2021 11:41 AM Chest X-Ray 01/01/22 07:00 XR chest 2V PA/lateral HISTORY: Left-sided pacemaker placement. EXACT TIME ORDERED Evaluate for pneumothorax and l COMPARISON: Chest 12/29/2021. FINDINGS: Interval placement left-sided dual-chamber pacemaker. The leads appear intact. No pneumothorax. No pleural effusions. The cardiac silhouette is top normal in size. There is mild interstitial thickening. This is similar to the prior study. No new focal lung consolidations to suggest pneumonia. IMPRESSION: 1. Interval placement of a left-sided dual-chamber pacemaker. No pneumothorax. 2. There is mild interstitial thickening, unchanged. ACT 112: Negative or not required by law. Electronically signed by: Johnnie Rausch M.D. 01/01/2022 9:41 AM Hospital Course (1) AV heart block: Patient presented with complete heart block with heart rates in the 40s. He had reported dyspnea on exertion likely due to lack of cardiac output from such. TSH was normal. Lyme testing was negative. He was admitted to the ICU and on 12/30/21 he underwent temporary pacemaker placement by Dr Royal Garza. Dr Malik Barron then placed permanent pacemaker on 12/31/21. He had no complications from his pacemaker placement. Post-procedural CXR was negative for pneumothorax. He had no pocket hematoma on physical exam on day of discharge. He was initiated on metoprolol succinate 50mg daily. Irbesartan, HCTZ, diltiazem, and aldactone were discontinued. The patient was counseled regarding left arm restrictions. He will follow-up with Dr Honorio Brandon at [facility] in [place] within 1 week of discharge for incision & device check. (2) Diabetes mellitus type II, controlled: Hemoglobin a1c was 6.3% during the stay. He will resume metformin BID post-discharge. BSGs were controlled while here. (3) Severe obstructive sleep apnea: Chronic. Patient is compliant with his home BiPAP. Continue nocturnal BiPAP 15/. Although he is compliant with BIPAP I suspect his right ventricular dysfunction is due to EMMA. He has no prior h/o VTE. (4) Anemia: Patient with normochromic, normocytic anemia with Hgb = 12 at time of admission. He should f/u with his PCP for this. (5) Hypertension: Due to his complete heart block BPs were low-normal during the stay. Spironolactone, irbesartan, hydrochlorothiazide, and diltiazem were held during the hospitalization. After pacemaker placement his BPs did rise and cardiology advised institution of metoprolol succinate 50mg once daily. F/u with PCP and cardiology for HTN management. (6) TAM (acute kidney injury): Admission Cr was 1.8, improving to 1.2 with supportive care. TAM was likely prerenal in etiology due to poor cardiac output in the setting of his complete heart block. (7) Dyslipidemia: Continue simvastatin 40 mg p.o. nightly. (8) Gout: Chronic. Stable. Continue allopurinol 300 mg p.o. every morning for prophylaxis. (9) Exercise-induced asthma: Chronic. Stable. Continue albuterol 2 puffs inhaled every 6 hours as needed. (10) Morbid obesity with BMI of 50.0-59.9, adult: BMI 50.7 (11) Right ventricular dysfunction: as seen on echocardiogram. 2nd to long-standing EMMA? other? no evidence of decompensated CHF during the stay. f/u with [facility]. (12) MRSA (methicillin resistant Staphylococcus aureus) carrier: Routine MRSA BACK FE[employer] LINE swab upon admission to the ICU was POSITIVE. He has no prior h/o recurrent skin abscesses or infection. We discussed the MRSA carriage state in detail. Handouts given. I asked him to f/u with PCP for this and to consider a repeat MRSA test in 4-6 weeks. If still positive could pursue MRSA eradication protocol. Total Time Total Time Spent Total Time Spent (In Minutes): 45 Discharge Plan Discharge Items Patient Disposition: Home - Self-Care Reason For Visit: HEART BLOCK Discharge Diagnosis: 1. complete heart block with insertion of pacemaker 2. type 2 diabetes 3. high blood pressure Activity: Per Instructions section Lifting: No more than 10 pounds Lifting Comment: no lifting left arm above shoulder OR behind neck for 6 weeks Bathing: Keep incision dry Bathing Comment: keep wound dry and Steri-Strips intact until follow-up appt Non-emergency contact: Primary Care Provider and Team Physician Call non-emergency contact if: you have any medication questions, your symptoms worsen, you have a fever, your wound has increased redness, your wound has increased drainage and your wound pain has increased Follow-up/Referrals: Hamida Mae PA-C [Physician Scientific Specialist] - 01/09/22 3:00 pm Honorio Brandon DO [Physician] - (office will call ) Diet: Carb Consistent or DM2 and Heart Healthy Addtl Attending Provider Instructions: Mr Mccoy, You were hospitalized for complete heart block / 3rd degree heart block. See handout. You required a temporary pacemaker in the ICU. On 12/31/21 Dr Malik Boone from [facility] inserted a permanent pacemaker. The temporary pacemaker was removed. The pacemaker device is working well. Your chest x-ray on 01/01 is normal. Your Lyme testing was negative (Lyme disease can cause heart block). The exact cause of your heart block is uncertain. Dr Brandon at [facility] plans to perform some additional heart testing in the future to exclude other forms of heart disease that can lead to heart block. Recommendations - 1. please STOP the following medications for now - * diltiazem * irbesartan * hydrochlorothiazide * spironolactone * celebrex 2. for your high blood pressure and heart - * START metoprolol succinate 50mg once daily at bedtime; new prescription sent to your pharmacy for you 3. for any pain related to your pacemaker placement - * hydrocodone-acetaminophen 1 tablet every 6 hours as needed for pain * this is a narcotic pain killer medication * it can cause you to feel sleepy; thus, NO DRIVING while taking this medication and do not drink any alcohol * it can also cause constipation; thus, if you take this medication for pain, please take jdyk-rug-ajrkxow miralax or other bowel agent for constipation 4. no immersing the pacemaker incision in water - thus, NO tub baths or swimming for 5 days; keep the pacemaker incision site clean/dry/intact; leave the steri strips in place; ok to shower but keep the incision covered & dry 5. your MRSA screen from the nose was positive when you were admitted to the ICU. See handout on "MRSA." this is a common staph bug that either lives in the nose or on your skin. Nothing to do for this at this time. However, in about 1 month or so, please have your family doctor repeat the nasal swab for MRSA. If it continues to remain positive various treatments can be used to cleanse and rid the body of MRSA. Again see handout. 6. ok to resume your metformin TOMORROW AM, 01/02/22 7. you have mild anemia dating back to 2019. Anemia means that your red cells are mildly low. Please talk to your family doctor about further tests to determine the cause of your anemia. Follow-up - 1. see Dr Brandon in 1 week 2. see your family doctor in 1-2 weeks Return to [facility] if - * you have fever over 100 degrees * you have any concerns about your pacemaker insertion site (redness, swelling, increased pain, etc) * you have chest pains or are short of breath * any other concerns It was our pleasure to care for you at [facility]! Please continue to feel better, Dr Caleb Anders Nurse Consultant Provider Instructions: ACTIVITY RECOMMENDATIONS following your pacemaker: * Do not raise the LEFT arm over head/shoulder or behind the back/neck for 6 weeks. SPECIAL CARE INSTRUCTIONS: * If bleeding occurs, apply direct pressure to area for 5 minutes. * Call your doctor if you have severe pain, fever, drainage or bleeding at site. * Keep dressing on and dry for 48 hours then remove. * Keep any scheduled doctor's appointment. * Implant Card - hand held device with website information given. SKIN IRRITATION: * You may experience some redness and/or swelling in the area where radiation was administered. If any skin irritation occurs, please contact your family physician. FOLLOW UP VISIT: Keep any scheduled doctor appointments. Pending Studies at Discharge: No Stand-Alone Forms: My [facility], Work/School Release, Smoking Cessation Medications and DC Order Prescriptions: New metoprolol succinate 50 mg Tablet Extended Release 24 Hr 50 mg PO HS Qty: 30 2RF hydrocodone-acetaminophen 5-325 mg tablet 1 tab PO Q6H PRN (Reason: pain) Qty: 10 0RF Continued allopurinol 300 mg tablet 300 mg PO QAM Qty: 90 1RF simvastatin 40 mg tablet 40 mg PO HS Qty: 90 1RF metformin 500 mg tablet extended release 24 hr 1,000 mg PO BID Qty: 360 3RF albuterol sulfate 90 mcg/actuation HFA aerosol inhaler 2 puff INH Q6H PRN (Reason: Shortness Of Breath) Qty: 18 1RF triamcinolone acetonide 0.1 % cream 1 applic topical BID Qty: 80 0RF Rx Instructions: Apply twice per day as needed to rash on legs. multivitamin Tablet 1 tab PO QAM Wegovy 2.4 mg/0.75 mL pen injector 0 mg SUBCUT WE Rx Instructions: Q SUN Discontinued spironolactone 25 mg tablet 25 mg PO QAM Qty: 90 1RF celecoxib [Celebrex] 100 mg capsule 100 mg PO BID Qty: 60 5RF Rx Instructions: 1 capsule twice per day with food. diltiazem HCl 300 mg capsule,extended release 24hr 300 mg PO QAM Qty: 90 1RF hydrochlorothiazide 25 mg tablet 25 mg PO QAM Qty: 90 1RF irbesartan 300 mg tablet 300 mg PO QAM Qty: 90 1RF Discharge Orders: Discharge Order (Routine); Ordered 01/01/22 Ordered By: Stevie Mcdowell/Other Patient Handouts: Managing Type 2 Diabetes, MRSA, Heart Block 3rd Degree Admission Data Admit Date/Time: 12/30/21 01:50 Attending Provider: Stevie Ellis Admit Provider: Alicia Juarez Primary Care Provider: PCP,NO Other Providers: Honorio Brandon ; Malik Barron. ; Tejinder Edwards Other Interventions: Discharge Summary Assessment (RN) Last Done: 01/01/22 13:36 Coding Level of Care Code D/C DAY MANAGEMENT >30 MINS Diagnoses AV heart block I44.30 Diabetes mellitus type II, controlled E11.9 Severe obstructive sleep apnea G47.33 Anemia D64.9 Hypertension I10 TAM (acute kidney injury) N17.9 Dyslipidemia E78.5 Gout M10.9 Exercise-induced asthma J45.990 Morbid obesity with BMI of 50.0-59.9, adult E66.01; Z68.43 Right ventricular dysfunction I51.9 MRSA (methicillin resistant Staphylococcus aureus) carrier Z22.322
[2022-01-01] MEDS ORDERED: METOPROLOL SUCC 50MG EXT REL TAB PO SCH (21:00)
== END 2022-01-01 14:15 | disposition home or self-care (01) | DRG 243 ==
LOC: ED 23:13 → SUATTDRO 12-30 01:50 → 4W 12-30 01:50 → 1E 12-30 13:52
DX: D64.9 Anemia, unspecified; E78.5 Hyperlipidemia, unspecified; E11.22 Type 2 diabetes mellitus with diabetic chronic kidney disease; N17.9 Acute kidney failure, unspecified; Z79.899 Other long term (current) drug therapy; M10.9 Gout, unspecified; I47.2 Ventricular tachycardia; N18.9 Chronic kidney disease, unspecified; E66.01 Morbid (severe) obesity due to excess calories; R79.1 Abnormal coagulation profile; D86.89 Sarcoidosis of other sites; I49.8 Other specified cardiac arrhythmias; Z77.22 Contact with and (suspected) exposure to environmental tobacco smoke (acute) (chronic); I44.2 Atrioventricular block, complete; I42.8 Other cardiomyopathies; Z79.84 Long term (current) use of oral hypoglycemic drugs; G47.33 Obstructive sleep apnea (adult) (pediatric); Z68.43 Body mass index [BMI] 50.0-59.9, adult; I13.10 Hypertensive heart and chronic kidney disease without heart failure, with stage 1 through stage 4 chronic kidney disease, or unspecified chronic kidney disease; J45.909 Unspecified asthma, uncomplicated; Z83.3 Family history of diabetes mellitus; Z22.322 Carrier or suspected carrier of Methicillin resistant Staphylococcus aureus